=== PATIENT | female | born 1975 | race Caucasian/White ===

== ENCOUNTER 2018-02-13 13:15 | Outpatient (RCR) | payer OTHER, SELFPAY ==
--- NOTE | 2017-12-14 18:52 | MASS.EVAL ---
Massage Therapy Evaluation: Initial Evaluation Date: 12/14/2017 SUBJECTIVE: Marli is a 42 year old female who was referred to the [facility] facility for a massotherapy evaluation by Dr. Dailey with the diagnosis of neck and low back pain. Marli presents today with the symptoms of neck and upper back pain and tension. She also has muscle tension in her low back and complains of a headache. Marli reports having a medical history of having five or more headaches per week and complains of stress. She reports having minimal limitations during her daily activities. OBJECTIVE: Upon observation Marli has poor posture with her head forward and shoulders forward from the neutral position in sitting and standing. After examination and palpation I found Marli to have very high muscle tension with tenderness and myofascial restrictions in her sub occipitals, trapezius, rhomboids, scalenes, thoracic paraspinals. Her hips and lumbar region were also tight. The first treatment consisted of a one hour massage to her full body with myofascial release, muscle stripping, trigger point compression techniques, and cervical manual traction. ASSESSMENT: I feel that Marli is a good candidate for massotherapy at this time. She had a favorable response to the first treatment with reduction in her muscle aches, pain and tension. She also had improvement in her cervical flexibility. PLAN: The plan of care was reviewed with the patient. The patient is to be seen on as needed basis for a total of ten sessions with the recommendation of once every four weeks for a one hour treatment.
--- NOTE | 2018-07-23 15:59 | MASS.DISCH ---
Massage Therapy Discharge Summary: Discharge Date: 07/23/2018 Marli was seen for a massotherapy evaluation on 12/14/2017 with the diagnosis of neck and low back pain. She was treated with two sessions of massage therapy consisting of deep pressure soft tissue techniques, myofascial release and trigger point compression to her cervical, thoracic, lower back, upper extremities and hips. Marli responded well to the therapy by reporting decreased tension and pain throughout her neck, shoulders, lower back and hips. Her goals for therapy were not met due to no follow up treatment sessions performed. At this time this patient is being discharged from our care at [facility] facility.
--- NOTE | 2018-07-23 16:03 | DS.PCM_ITS ---
Massage Therapy Discharge Summary: Discharge Date: 07/23/2018 Marli was seen for a massotherapy evaluation on 12/14/2017 with the diagnosis of neck and low back pain. She was treated with two sessions of massage therapy consisting of deep pressure soft tissue techniques, myofascial release and trigger point compression to her cervical, thoracic, lower back, upper extremities and hips. Marli responded well to the therapy by reporting decreased tension and pain throughout her neck, shoulders, lower back and hips. Her goals for therapy were not met due to no follow up treatment sessions performed. At this time this patient is being discharged from our care at [facility] facility.
== END 2018-02-13 19:00 | disposition home or self-care (01) ==
LOC: MASS 13:15
PROVIDERS: Family Provider Internal Medicine; PCP Internal Medicine; Visit Provider Internal Medicine
DX: M54.2 Cervicalgia (principal); M51.36 Other intervertebral disc degeneration, lumbar region
CPT/HCPCS: 97124

== ENCOUNTER → 2018-04-17 14:05 | Outpatient (CLI) | payer OTHER, SELFPAY ==
--- NOTE | 2018-04-17 14:13 | US_ITS ---
STUDY: ULTRASOUND TRANSVAGINAL CLINICAL: Female, 42 years old. Left pelvic pain. TECHNIQUE: Transvaginal COMPARISON: None. FINDINGS: Normal uterine size measuring 7.9 x 4.0 x 4.0 cm in maximal craniocaudal dimension. There are no myometrial masses. Normal endometrial thickness measuring 4.3 mm. Endometrial echoes are hyperechoic. There are no endometrial masses, and there is no fluid in the endometrial cavity. Nabothian cysts of the uterine cervix. Normal right ovary, measuring 3.7 x 1.7 x 1.9 cm. There is a 1.4 cm cyst. Normal left ovary, measuring 3.0 x 1.6 x 1.9 cm. There are multiple follicles without a dominant cyst. There is no free fluid in the pelvis. Polycystic ovary disease: No. US/Pelvic (Non ) IMPRESSION: No significant finding or abnormality. Electronically Signed: Julio Cesar Rosa MD at 16:12 EDT , Service support ,
--- NOTE | 2018-04-17 14:14 | US_ITS ---
STUDY: ULTRASOUND TRANSVAGINAL CLINICAL: Female, 42 years old. Left pelvic pain. TECHNIQUE: Transvaginal COMPARISON: None. FINDINGS: Normal uterine size measuring 7.9 x 4.0 x 4.0 cm in maximal craniocaudal dimension. There are no myometrial masses. Normal endometrial thickness measuring 4.3 mm. Endometrial echoes are hyperechoic. There are no endometrial masses, and there is no fluid in the endometrial cavity. Nabothian cysts of the uterine cervix. Normal right ovary, measuring 3.7 x 1.7 x 1.9 cm. There is a 1.4 cm cyst. Normal left ovary, measuring 3.0 x 1.6 x 1.9 cm. There are multiple follicles without a dominant cyst. There is no free fluid in the pelvis. Polycystic ovary disease: No. US/Transvaginal Non- IMPRESSION: No significant finding or abnormality. Electronically Signed: Julio Cesar Rosa MD at 16:12 EDT , Service support ,
== END ==
PROVIDERS: Family Provider Internal Medicine; PCP Internal Medicine; Visit Provider Obstetrics & Gynecology
DX: R10.9 Unspecified abdominal pain (principal); R10.2 Pelvic and perineal pain
CPT/HCPCS: 76830; 76856

== ENCOUNTER → 2018-04-26 13:19 | Outpatient (CLI) | payer OTHER, SELFPAY ==
[2018-05-01 11:23] LABS: HPV Reflexed? NOT INDICATED
== END ==
PROVIDERS: Family Provider Internal Medicine; PCP Internal Medicine; Visit Provider Obstetrics & Gynecology
DX: Z12.4 Encounter for screening for malignant neoplasm of cervix (principal)
CPT/HCPCS: 88175; G0145

== ENCOUNTER → 2018-06-13 07:53 | Outpatient (CLI) | payer OTHER, SELFPAY ==
[2018-06-13 09:03] LABS: Color, Urine Yellow (Yellow); Glucose, Dipstick Normal (Normal); Ketone-Dipstick Negative (Negative); Leukocyte Esterase-Dipstick Negative /ul (Negative); Nitrite-Dipstick Negative (Negative); Occult Blood-Urine Negative /ul (Negative); Protein-Dipstick Negative (Negative); Urine Bilirubin Dipstick Negative (Negative); Urine Clarity Sl. Cloudy (Clear); Urine Urobilinogen Normal (Normal); Urine pH 6.5 (5.0 - 8.0)
[2018-06-13 09:25] LABS: Anion Gap 10 (5-15); BUN 14 mg/dL (7-18); BUN/Creat Ratio 14.9 RATIO (10-20); Calcium,Total 8.7 mg/dL (8.5-10.1); Chloride 109 mmol/L (98-107); Creatinine, Serum 0.94 mg/dL (0.55-1.02); EST Glomerular Filtration Rate 69 mL/min (>60); Est Glom Filt Rate - Afr Amer 84 mL/min (>60); Glucose 91 mg/dL (74-106); Potassium 3.8 mmol/L (3.5-5.1); Sodium Level 142 mmol/L (136-145)
== END ==
PROVIDERS: Family Provider Internal Medicine; PCP Internal Medicine; Referring Provider Internal Medicine; Visit Provider Internal Medicine
DX: R31.9 Hematuria, unspecified (principal)
CPT/HCPCS: 36415; 80048; 81002

== ENCOUNTER → 2018-08-16 08:15 | Outpatient (CLI) | payer OTHER, SELFPAY ==
--- NOTE | 2018-08-16 08:15 | BI_ITS ---
MAMMOGRAPHY - BILATERAL SCREENING REASON FOR EXAM: Female, 43 years old. Routine annual screening examination. PERTINENT HISTORY: Aunts with breast cancer. TECHNIQUE: Digital bilateral breast samir (3D mammographic acquisition) in the CC and MLO projections. 2-D mediolateral oblique (MLO) and craniocaudad (CC) views of both breasts were obtained. CAD: Full Field Digital Mammography with Computer Added Detection was performed. COMPARISON: Comparison is made with prior study dated April 07, 2017 and November 30, 2015. FINDINGS: Breast Composition: The breasts are extremely dense, which lowers the sensitivity of mammography. There are no dominant masses or suspicious calcifications. No other significant abnormalities are identified. There has been no significant change since the prior study. BI/SCREENING MAMM (CAD), BILAT IMPRESSION: Stable bilateral screening mammogram. Yearly follow-up mammogram recommended. (A) ASSESSMENT CATEGORY: BIRADS Category 1: Negative. A letter regarding these results will be sent to the patient by the facility within 30 days. Approximately 10% of breast cancers are not detected by mammography. A normal mammogram should not delay biopsy of a clinically suspicious abnormality. [id number] Electronically Signed: Chester Underwood MD at 9:56 EST Tel [phone], Service support ,
== END ==
PROVIDERS: Family Provider Internal Medicine; PCP Internal Medicine; Referring Provider Obstetrics & Gynecology; Visit Provider Obstetrics & Gynecology
DX: Z12.31 Encounter for screening mammogram for malignant neoplasm of breast (principal)
CPT/HCPCS: 77063; 77067

== ENCOUNTER → 2018-09-21 13:32 | Outpatient (CLI) | payer OTHER, SELFPAY ==
[2018-09-21 15:01] LABS: Anion Gap 10 (5-15); BUN 11 mg/dL (7-18); BUN/Creat Ratio 12.3 RATIO (10-20); Chloride 109 mmol/L (98-107); Creatinine, Serum 0.89 mg/dL (0.55-1.02); EST Glomerular Filtration Rate 73 mL/min (>60); Est Glom Filt Rate - Afr Amer 89 mL/min (>60); Glucose 133 mg/dL (74-106); Potassium 3.2 mmol/L (3.5-5.1); Sodium Level 141 mmol/L (136-145)
== END ==
PROVIDERS: Family Provider Internal Medicine; PCP Internal Medicine; Referring Provider Internal Medicine; Visit Provider Internal Medicine
DX: Z51.81 Encounter for therapeutic drug level monitoring (principal); Z79.1 Long term (current) use of non-steroidal anti-inflammatories (NSAID); G43.709 Chronic migraine without aura, not intractable, without status migrainosus; I10 Essential (primary) hypertension
CPT/HCPCS: 36415; 80048

== ENCOUNTER → 2018-10-03 14:31 | Outpatient (CLI) | payer OTHER, SELFPAY ==
[2018-10-03 15:09] LABS: Potassium 3.6 mmol/L (3.5-5.1)
== END ==
PROVIDERS: Family Provider Internal Medicine; PCP Internal Medicine; Referring Provider Nurse Practitioner Primary Care; Visit Provider Nurse Practitioner Primary Care
DX: E87.6 Hypokalemia (principal)
CPT/HCPCS: 36415; 84132

== ENCOUNTER → 2019-04-17 07:33 | Outpatient (CLI) | payer OTHER, SELFPAY ==
[2018-10-11 16:06] VITALS: BMI 29.9
--- NOTE | 2019-04-17 07:34 | CT_ITS ---
STUDY: CT ABDOMEN AND PELVIS WITHOUT CONTRAST REASON FOR EXAM: Female, 43 years old. One-year history of left lower quadrant pain and hematuria. RADIATION DOSAGE (If Supplied By Facility): CTDIvol = ( 12.06 ) mGy, DLP = ( 644.84 ) mGycm TECHNIQUE: Transaxial images were obtained from the dome of the diaphragm to the symphysis pubis without oral contrast, and without intravenous contrast. Sagittal and coronal images were reconstructed. Individualized dose optimization techniques were used for this CT. COMPARISON: None. FINDINGS: Minimal increased markings in the medial aspect of the right middle lobe suggestive of scarring. The visualized portions of the heart are within normal limits. Normal liver. Normal gallbladder and extrahepatic biliary system. There are multiple benign calcified granulomata of the spleen. Normal pancreas. Normal bilateral adrenal glands. Normal right kidney. Normal left kidney. Normal visualized stomach. Normal small intestine. Normal colon. The appendix is visualized and appears normal. Normal abdominal aorta. Normal inferior vena cava. Normal retroperitoneum. Normal urinary bladder. Phleboliths are seen in the pelvis. Normal abdominal wall. Disc space narrowing at the L4-L5 level. CT/Abdomen/Pelvis without Cont IMPRESSION: Normal unenhanced CT of the abdomen and pelvis. Electronically Signed: Chester Underwood, at 15:00 EDT , Service support ,
== END ==
PROVIDERS: Family Provider Internal Medicine; PCP Internal Medicine; Referring Provider Nurse Practitioner Primary Care; Visit Provider Nurse Practitioner Primary Care
DX: R31.29 Other microscopic hematuria (principal)
CPT/HCPCS: 74176

== ENCOUNTER → 2019-05-24 16:55 | Outpatient (CLI) | payer OTHER, SELFPAY ==
[2018-10-11 16:06] VITALS: BMI 29.9
== END ==
PROVIDERS: Visit Provider Obstetrics & Gynecology
DX: Z12.4 Encounter for screening for malignant neoplasm of cervix (principal)

== ENCOUNTER 2019-06-27 14:30 | Outpatient (RCR) | payer OTHER, SELFPAY ==
[2018-10-11 16:06] VITALS: BMI 29.9
--- NOTE | 2018-11-06 20:09 | MASS.EVAL_ITS ---
Massage Therapy Evaluation: Initial Evaluation Date: 11/06/2018 SUBJECTIVE: Marli is a 43 year old female who was referred to the [facility] facility for a massotherapy evaluation by Dr. Mckeon with the diagnosis of cervicalgia and lumbar disc dysfunction. Marli presents today with the symptoms of tension and pain in her neck, mid back and low back. Marli reports having a past medical history migraines, neck and back pain. She reports having minimal improvement with exercise and stretching. OBJECTIVE: Upon observation Marli has some posture issues with her head and shoulders forward from the neutral position in sitting and standing. After examination and palpation I found Marli to have high muscle tension with tenderness and myofascial restrictions in her sub occipitals, levator scapulae, trapezius, rhomboids, scalenes, and thoracic paraspinals. Her QL?s, lumbar paraspinals, piriformis, glute medius and minimus all were very tight with fascial restrictions, tender points and trigger points. The first treatment consisted of a one hour massage to her upper body with myofascial release, muscle stripping, trigger point compression techniques, and cervical manual traction. ASSESSMENT: I feel that Marli is a good candidate for massotherapy at this time. She had a favorable response to the first treatment with reduction in her muscle aches, pain and tension. She also had improvement in her cervical flexibility and low back flexibility. PLAN: The plan of care was reviewed with the patient. The patient is to be seen on an as needed basis for a total of ten sessions with the recommendation of once every month for a one hour treatment.
--- NOTE | 2019-07-25 13:16 | MASS.DISCH ---
Massage Therapy Discharge Summary: Discharge Date: 07/25/2019 Marli was seen for a massotherapy evaluation on 11/06/2018 with the diagnosis of cervicalgia. She was treated with seven sessions of massage therapy consisting of moderate to deep pressure soft tissue techniques, myofascial release and trigger point compression to her cervical, thoracic, lower back and upper extremities. Marli responded well to the therapy by reporting decreased tension and pain throughout her head, neck, shoulders, lower back and hips. Her goals for therapy were met throughout the treatment sessions. At this time this patient is being discharged from our care at [facility] facility.
== END 2019-06-27 19:00 | disposition home or self-care (01) ==
LOC: MASS 14:30
PROVIDERS: Family Provider Internal Medicine; PCP Internal Medicine
DX: M54.2 Cervicalgia (principal); M51.36 Other intervertebral disc degeneration, lumbar region
CPT/HCPCS: 97124

== ENCOUNTER → 2020-04-06 14:17 | Outpatient (CLI) | payer OTHER, SELFPAY ==
[2019-07-18 16:00] VITALS: BMI 29.8
--- NOTE | 2020-04-06 14:21 | BI_ITS ---
MAMMOGRAPHY - BILATERAL SCREENING REASON FOR EXAM: Female, 44 years old. Routine annual screening examination. PERTINENT HISTORY: Aunt with breast cancer. TECHNIQUE: Digital bilateral breast syeda (3D mammographic acquisition) in the CC and MLO projections. 2-D mediolateral oblique (MLO) and craniocaudad (CC) views of both breasts were obtained. CAD: Full Field Digital Mammography with Computer Added Detection was performed. COMPARISON: Comparison is made with prior study dated 08/16/2018 and 04/07/2017. FINDINGS: Breast Composition: The breasts are extremely dense, which lowers the sensitivity of mammography. There are no dominant masses or suspicious calcifications. No other significant abnormalities are identified. There has been no significant change since the prior study. BI/SCREEN MAMM (CAD) W/SYEDA BILAT IMPRESSION: Stable bilateral screening mammogram. Yearly follow-up mammogram recommended. (A) ASSESSMENT CATEGORY: BIRADS Category 1: Negative. A letter regarding these results will be sent to the patient by the facility within 30 days. Approximately 10% of breast cancers are not detected by mammography. A normal mammogram should not delay biopsy of a clinically suspicious abnormality. [id number] Electronically Signed: Chester Underwood, at 15:06 EDT , Service support ,
== END ==
PROVIDERS: Referring Provider Student in an Organized Health Care Education/Training Program; Visit Provider Student in an Organized Health Care Education/Training Program
DX: Z12.31 Encounter for screening mammogram for malignant neoplasm of breast (principal); Z80.3 Family history of malignant neoplasm of breast
CPT/HCPCS: 77063; 77067

== ENCOUNTER → 2020-05-21 11:42 | Outpatient (CLI) | payer OTHER, SELFPAY ==
[2019-07-18 16:00] VITALS: BMI 29.8
--- NOTE | 2020-05-21 11:47 | RAD_ITS ---
STUDY: X-RAY - LEFT SHOULDER REASON FOR EXAM: Female, 44 years old. Left shoulder pain x 1 month +, NKI -- pain in scapula TECHNIQUE: C5 view(s) of the shoulder. COMPARISON: None. FINDINGS: Normal glenohumeral articulation. Normal acromioclavicular joint. Normal acromion. Normal humeral head and visualized proximal humerus. The soft tissue structures are unremarkable. Normal visualized pulmonary apex. RAD/Shoulder min 2 Views IMPRESSION: Within normal limits x-ray examination of the shoulder. Electronically Signed: Rhonda Rose MD at 15:49 EDT Tel , Service support ,
== END ==
PROVIDERS: PCP Internal Medicine; Visit Provider Nurse Practitioner Primary Care
DX: M25.512 Pain in left shoulder (principal)
CPT/HCPCS: 73030

== ENCOUNTER → 2020-05-28 11:05 | Outpatient (CLI) | payer OTHER, SELFPAY ==
--- NOTE | 2020-05-28 11:08 | RAD_ITS ---
STUDY: X-RAY - LEFT SHOULDER REASON FOR EXAM: Left shoulder pain. TECHNIQUE: A single axillary view of the shoulder. COMPARISON: Radiographs 05/21/2020. FINDINGS: Normal glenohumeral articulation. Normal acromion. Normal humeral head and visualized proximal humerus. The soft tissue structures are unremarkable. RAD/Shoulder One View IMPRESSION: Unremarkable axillary view of the left shoulder. Electronically Signed: Pool Keyes MD at 15:32 EDT Tel , Service support ,
== END ==
PROVIDERS: PCP Internal Medicine; Referring Provider Orthopaedic Surgery; Visit Provider Orthopaedic Surgery
DX: M25.512 Pain in left shoulder (principal)
CPT/HCPCS: 73020

== ENCOUNTER 2020-05-28 14:30 | Outpatient (RCR) | payer OTHER, SELFPAY ==
[2019-07-18 16:00] VITALS: BMI 29.8
== END 2020-05-28 19:00 | disposition home or self-care (01) ==
LOC: MASS 14:30
PROVIDERS: PCP Internal Medicine
DX: M51.36 Other intervertebral disc degeneration, lumbar region (principal); M54.2 Cervicalgia
CPT/HCPCS: 97124

== ENCOUNTER → 2020-06-09 11:49 | Outpatient (CLI) | payer OTHER, SELFPAY ==
--- NOTE | 2020-06-09 11:50 | RAD_ITS ---
STUDY: X-RAY - THORACIC SPINE REASON FOR EXAM: Female, 45 years old. PAIN IN CERVICAL SPINE DOWN INTO HER THORACIC SPINE FOR ABOUT 1 MONTH NOW. NO KNOWN INJURY. TECHNIQUE: 3 view(s) of the thoracic spine were obtained. COMPARISON: None. FINDINGS: Normal kyphosis of the thoracic spine. There is mild dextro scoliosis. No evidence for acute fracture or subluxation. The disc space heights are well-maintained although there is mild multilevel endplate spurring The soft tissue structures are unremarkable. RAD/Thoracic Spine 3 Views IMPRESSION: Mild scoliosis and degenerative change. No acute fracture. Electronically Signed: Poncho Garibay MD at 18:33 EST , Service support ,
--- NOTE | 2020-06-09 11:55 | RAD_ITS ---
STUDY: X-RAY - CERVICAL SPINE REASON FOR EXAM: Female, 45 years old. PAIN IN CERVICAL SPINE DOWN INTO HER THORACIC SPINE FOR ABOUT 1 MONTH NOW. NO KNOWN INJURY. TECHNIQUE: 5 view(s) of the cervical spine were obtained. COMPARISON: None FINDINGS: Normal anterior atlantoaxial articulation. Normal odontoid process. Decreased cervical lordosis. Normal vertebral bodies and endplates. Normal disc space heights. Normal visualized intervertebral neuroforamina. The soft tissue structures are unremarkable. RAD/Cerv Spine 4 or 5 Views IMPRESSION: Decreased cervical lordosis possibly due to muscle spasm or positioning artifact. No acute fracture or other significant bony pathology. Electronically Signed: Poncho Garibay MD at 17:58 EST , Service support ,
== END ==
PROVIDERS: PCP Internal Medicine; Referring Provider Orthopaedic Surgery; Visit Provider Orthopaedic Surgery
DX: M54.9 Dorsalgia, unspecified (principal)
CPT/HCPCS: 72050; 72072

== ENCOUNTER 2020-06-11 10:03 | Outpatient (RCR) | payer OTHER, SELFPAY ==
[2020-06-02 12:09] VITALS: BMI 29.8
== END 2020-06-11 19:00 | disposition home or self-care (01) ==
LOC: PT 10:03
PROVIDERS: PCP Internal Medicine; Referring Provider Orthopaedic Surgery; Visit Provider Orthopaedic Surgery
DX: M54.12 Radiculopathy, cervical region (principal); M54.6 Pain in thoracic spine
CPT/HCPCS: 97140; 97162

== ENCOUNTER → 2020-06-19 06:35 | Outpatient (CLI) | payer OTHER, SELFPAY ==
[2020-06-02 12:09] VITALS: BMI 29.8
--- NOTE | 2020-06-19 06:36 | MRI_ITS ---
STUDY: MRI THORACIC SPINE WITHOUT CONTRAST REASON FOR EXAM: Female, 45 years old. L shoulder pain, no trauma x 5weeks TECHNIQUE: Standardized fat and water weighted pulse sequences were obtained in the sagittal and axial planes. COMPARISON: X-ray dated 06/09/2020 FINDINGS: Normal kyphosis of the thoracic spine. There is no substantial scoliosis. T1-2, T2-3, T3-4, T4-5, T5-6, T6-7, T7-8, T8-9, T9-10, T10-11, T11-12: There is mild diffuse disc space narrowing is diverticulosis without demonstrated central canal or foraminal stenosis. There is a 2 cm hemangioma at T9 Normal visualized thoracic cord. MRI/Spine Thoracic (Routine) IMPRESSION: Mild multilevel degenerative changes. Electronically Signed: Jimy Buenrostro MD at 8:28 EST Tel , Service support ,
--- NOTE | 2020-06-19 06:36 | MRI_ITS ---
STUDY: MRI CERVICAL SPINE WITHOUT CONTRAST REASON FOR EXAM: Female, 45 years old. L shoulder pain, no trauma x 5weeks TECHNIQUE: Standardized fat and water weighted pulse sequences were obtained in the sagittal and axial planes. COMPARISON: X-ray dated 06/09/2020 FINDINGS: Normal foramen magnum and brainstem-cervical cord junction. There is straightening of the normal cervical lordosis. C2-3: Normal endplates. Normal disc height, signal and morphology. Normal central canal and intervertebral neural foramina. C3-4: Normal endplates. Normal disc height, signal and morphology. Normal central canal and intervertebral neural foramina. C4-5: There is minimal disc space narrowing and endplate spondylosis. There is no significant disc herniation, central canal or foraminal stenosis. C5-6: There is mild disc space narrowing and endplates spondylosis. There is mild disc osteophyte complex with moderate central canal stenosis and flattening of the ventral spinal cord without increased cord signal. There is no foraminal stenosis. C6-7: There is mild disc space narrowing and endplates spondylosis. There is mild disc osteophyte complex asymmetric to the left with mild left subarticular narrowing and mild central canal stenosis. There is uncovertebral arthropathy with moderate left foraminal stenosis. There is no right foraminal stenosis. C7-T1: Normal endplates. Normal disc height, signal and morphology. Normal central canal and intervertebral neural foramina. Normal cervical cord. MRI/Spine Cervical (Routine) IMPRESSION: C5/C6: Moderate central canal stenosis. C6/C7: Moderate left foraminal stenosis. Electronically Signed: Jimy Buenrostro MD at 8:28 EST Tel , Service support ,
== END ==
PROVIDERS: PCP Internal Medicine; Referring Provider Orthopaedic Surgery; Visit Provider Orthopaedic Surgery
DX: M54.9 Dorsalgia, unspecified (principal); M54.12 Radiculopathy, cervical region
CPT/HCPCS: 72141; 72146

== ENCOUNTER → 2020-09-17 16:57 | Outpatient (CLI) | payer OTHER, SELFPAY | PROVIDERS: PCP Internal Medicine; Referring Provider Internal Medicine; Visit Provider Internal Medicine | DX: Z20.828 Contact with and (suspected) exposure to other viral communicable diseases (principal) | CPT/HCPCS: 87635; C9803; U0005; U0003 ==

== ENCOUNTER 2020-12-03 13:07 | Outpatient (RCR) | payer OTHER, SELFPAY ==
[2020-06-02 12:09] VITALS: BMI 29.8
--- NOTE | 2021-07-19 17:17 | MASS.DISCH ---
Massage Therapy Discharge Summary: Initial Evaluation Date: 12/03/20 Diagnosis: Headaches No. of Visits: 1 Date of last visit: 12/03/20 This patient is being discharged from our care at the [facility]. Thank you, Merlyn Durant LMT
== END 2020-12-03 19:00 | disposition home or self-care (01) ==
LOC: MASS 13:07
PROVIDERS: PCP Internal Medicine
DX: G43.119 Migraine with aura, intractable, without status migrainosus (principal)
CPT/HCPCS: 97124

== ENCOUNTER → 2021-04-07 12:20 | Outpatient (CLI) | payer OTHER, SELFPAY | PROVIDERS: PCP Internal Medicine; Referring Provider Nurse Practitioner Primary Care; Visit Provider Nurse Practitioner Primary Care | DX: Z20.822 Contact with and (suspected) exposure to COVID-19 (principal) | CPT/HCPCS: 87635; C9803; U0005; U0003 ==

== ENCOUNTER → 2021-05-18 07:35 | Outpatient (CLI) | payer OTHER, SELFPAY ==
[2021-05-18 08:30] LABS: Hemoglobin A1c 5.5 % (3.8-5.6)
[2021-05-18 08:36] LABS: Ferritin 59 ng/mL (8-252); Iron Binding Capacity,Total 417 ug/dL (250-450)
== END ==
PROVIDERS: PCP Internal Medicine; Referring Provider Nurse Practitioner Primary Care; Visit Provider Nurse Practitioner Primary Care
DX: U07.1 COVID-19 (principal); E61.1 Iron deficiency; R53.83 Other fatigue; R73.01 Impaired fasting glucose
CPT/HCPCS: 36415; 82728; 83036; 83550; 86769

== ENCOUNTER → 2021-05-19 09:11 | Outpatient (CLI) | payer OTHER, SELFPAY | PROVIDERS: PCP Internal Medicine; Referring Provider Physician Assistant; Visit Provider Physician Assistant | DX: Z11.52 Encounter for screening for COVID-19 (principal) | CPT/HCPCS: 87635; U0005; U0003 ==

== ENCOUNTER → 2021-05-31 06:59 | Outpatient (CLI) | payer OTHER, SELFPAY ==
--- NOTE | 2021-05-31 07:09 | BI_ITS ---
MAMMOGRAPHY - BILATERAL SCREENING REASON FOR EXAM: Female, 45 years old. Routine annual screening examination. PERTINENT HISTORY: Aunts with breast cancer. TECHNIQUE: Digital bilateral breast syeda (3D mammographic acquisition) in the CC and MLO projections. 2-D mediolateral oblique (MLO) and craniocaudad (CC) views of both breasts were obtained. CAD: Full Field Digital Mammography with Computer Added Detection was performed. COMPARISON: Comparison is made with prior study 04/06/2020 and 08/16/2018. FINDINGS: Breast Composition: The breasts are extremely dense, which lowers the sensitivity of mammography. There are no dominant masses or suspicious calcifications. Stable small benign-appearing bilateral axillary lymph nodes. No other significant abnormalities are identified. There has been no significant change since the prior study. BI/SCRN MAMM (CAD)W/SYEDA BILAT IMPRESSION: Stable bilateral screening mammogram. Yearly follow-up mammogram recommended. (A) ASSESSMENT CATEGORY: BIRADS Category 2: Benign. A letter regarding these results will be sent to the patient by the facility within 30 days. Approximately 10% of breast cancers are not detected by mammography. A normal mammogram should not delay biopsy of a clinically suspicious abnormality. [id number] Electronically Signed: Chester Underwood MD at 8:52 EDT , Service support ,
== END ==
PROVIDERS: PCP Internal Medicine; Referring Provider Internal Medicine; Visit Provider Internal Medicine
DX: Z12.31 Encounter for screening mammogram for malignant neoplasm of breast (principal); Z80.3 Family history of malignant neoplasm of breast
CPT/HCPCS: 77063; 77067

== ENCOUNTER → 2021-07-02 07:15 | Outpatient (CLI) | payer OTHER, SELFPAY | PROVIDERS: Visit Provider Pediatrics | DX: Z03.818 Encounter for observation for suspected exposure to other biological agents ruled out (principal) | CPT/HCPCS: 87635; U0005; U0003 ==

== ENCOUNTER 2021-08-11 07:42 | Outpatient (CLI) | payer OTHER, SELFPAY | END 2021-08-11 23:59 | disposition short-term general hospital (02) | PROVIDERS: PCP Internal Medicine; Referring Provider Pediatrics; Visit Provider Pediatrics | DX: Z03.818 Encounter for observation for suspected exposure to other biological agents ruled out (principal) | CPT/HCPCS: 87635; U0003; U0005 ==

== ENCOUNTER 2021-08-26 08:32 | Outpatient (CLI) | payer OTHER, SELFPAY | END 2021-08-26 23:59 | disposition short-term general hospital (02) | LOC: LABSPEC 09-01 08:32 | PROVIDERS: PCP Internal Medicine; Referring Provider Pediatrics; Visit Provider Pediatrics | DX: Z20.822 Contact with and (suspected) exposure to COVID-19 (principal) | CPT/HCPCS: 87635; U0003; U0005 ==

== ENCOUNTER 2021-09-03 07:42 | Outpatient (CLI) | payer OTHER, SELFPAY | END 2021-09-03 23:59 | disposition short-term general hospital (02) | LOC: LABSPEC 07:42 | PROVIDERS: PCP Internal Medicine; Referring Provider Pediatrics; Visit Provider Pediatrics | DX: Z03.818 Encounter for observation for suspected exposure to other biological agents ruled out (principal) | CPT/HCPCS: 87635; U0003; U0005 ==

== ENCOUNTER 2021-10-21 07:32 | Outpatient (CLI) | payer OTHER, SELFPAY | END 2021-10-21 23:59 | disposition home or self-care (01) | PROVIDERS: PCP Internal Medicine; Referring Provider Pediatrics; Visit Provider Pediatrics | DX: Z20.822 Contact with and (suspected) exposure to COVID-19 (principal) | CPT/HCPCS: 87635; U0003; U0005 ==

== ENCOUNTER → 2021-12-17 | Outpatient (CLI) | payer OTHER, SELFPAY | END | disposition home or self-care (01) | PROVIDERS: PCP Internal Medicine; Referring Provider Pediatrics; Visit Provider Pediatrics | DX: Z03.818 Encounter for observation for suspected exposure to other biological agents ruled out (principal) | CPT/HCPCS: 87635; U0003; U0005 ==

== ENCOUNTER → 2022-01-17 | Outpatient (CLI) | payer OTHER, SELFPAY ==
[2022-01-20 12:21] LABS: HPV APTIMA, High Risk Negative (Negative)
== END | disposition home or self-care (01) ==
LOC: LABSPEC 14:38
PROVIDERS: PCP Internal Medicine; Visit Provider Student in an Organized Health Care Education/Training Program
DX: Z12.4 Encounter for screening for malignant neoplasm of cervix (principal)
CPT/HCPCS: 87624; 88175; G0145

== ENCOUNTER → 2022-04-07 | Outpatient (CLI) | payer OTHER, SELFPAY | END | disposition home or self-care (01) | LOC: LABSPEC 08:27 | PROVIDERS: PCP Internal Medicine; Referring Provider Pediatrics; Visit Provider Pediatrics | DX: Z03.818 Encounter for observation for suspected exposure to other biological agents ruled out (principal) | CPT/HCPCS: 87426 ==

== ENCOUNTER → 2022-06-06 | Outpatient (CLI) | payer OTHER, SELFPAY ==
--- NOTE | 2022-06-06 08:01 | BI_ITS ---
MAMMOGRAPHY - BILATERAL SCREENING REASON FOR EXAM: Female, 46 years old. Routine annual screening examination. PERTINENT HISTORY: Aunts with breast cancer. TECHNIQUE: Digital bilateral breast syeda (3D mammographic acquisition) in the CC and MLO projections. 2-D mediolateral oblique (MLO) and craniocaudad (CC) views of both breasts were obtained. CAD: Full Field Digital Mammography with Computer Added Detection was performed. COMPARISON: Comparison is made with prior study dated 05/31/2021 and 04/06/2020. FINDINGS: Breast Composition: The breasts are extremely dense, which lowers the sensitivity of mammography. There are no dominant masses or suspicious calcifications. Stable small benign appearing bilateral axillary lymph nodes. No other significant abnormalities are identified. There has been no significant change since the prior study. BI/SCRN MAMM (CAD)W/SYEDA BILAT IMPRESSION: Stable bilateral screening mammogram. Yearly follow-up mammogram recommended. (A) ASSESSMENT CATEGORY: BIRADS Category 2: Benign. A letter regarding these results will be sent to the patient by the facility within 30 days. Approximately 10% of breast cancers are not detected by mammography. A normal mammogram should not delay biopsy of a clinically suspicious abnormality. [id number] Electronically Signed: Chester Underwood MD at 9:36 EDT ,
== END | disposition home or self-care (01) ==
LOC: OPBI 07:58
PROVIDERS: PCP Internal Medicine; Visit Provider Internal Medicine
DX: Z12.31 Encounter for screening mammogram for malignant neoplasm of breast (principal); Z80.3 Family history of malignant neoplasm of breast
CPT/HCPCS: 77063; 77067

== ENCOUNTER → 2023-06-07 | Outpatient (CLI) | payer BC, SELFPAY ==
--- NOTE | 2023-06-07 07:02 | BI_ITS ---
MAMMOGRAPHY - BILATERAL SCREENING REASON FOR EXAM: Female, 47 years old. Routine annual screening examination. PERTINENT HISTORY: Aunts with breast cancer. TECHNIQUE: Digital bilateral breast syeda (3D mammographic acquisition) in the CC and MLO projections. 2-D mediolateral oblique (MLO) and craniocaudad (CC) views of both breasts were obtained. CAD: Full Field Digital Mammography with Computer Added Detection was performed. COMPARISON: Comparison is made with prior study dated June 06, 2022 and May 31, 2021. FINDINGS: Breast Composition: The breasts are extremely dense, which lowers the sensitivity of mammography. There are no dominant masses or suspicious calcifications. Stable small benign-appearing bilateral axillary lymph nodes. No other significant abnormalities are identified. There has been no significant change since the prior study. BI/SCRN MAMM (CAD)W/SYEDA BILAT IMPRESSION: Stable bilateral screening mammogram. Yearly follow-up mammogram recommended. (A) ASSESSMENT CATEGORY: BIRADS Category 2: Benign. A letter regarding these results will be sent to the patient by the facility within 30 days. Approximately 10% of breast cancers are not detected by mammography. A normal mammogram should not delay biopsy of a clinically suspicious abnormality. [id number] Electronically Signed: Chester Underwood MD at 8:50 EDT ,
== END | disposition home or self-care (01) ==
PROVIDERS: PCP Nurse Practitioner; Referring Provider Nurse Practitioner Women's Health; Visit Provider Nurse Practitioner Women's Health
DX: Z12.31 Encounter for screening mammogram for malignant neoplasm of breast (principal); Z80.3 Family history of malignant neoplasm of breast
CPT/HCPCS: 77063; 77067

== ENCOUNTER → 2023-06-23 | Outpatient (CLI) | payer BC, SELFPAY ==
[2023-06-23 14:12] LABS: Ferritin 37 ng/mL (8-252); Iron 77 ug/dL (50-170); Iron Binding Capacity,Total 428 ug/dL (250-450)
== END | disposition home or self-care (01) ==
LOC: LAB 13:22
PROVIDERS: PCP Nurse Practitioner; Referring Provider Nurse Practitioner; Visit Provider Nurse Practitioner
DX: Z86.39 Personal history of other endocrine, nutritional and metabolic disease (principal)
CPT/HCPCS: 36415; 82728; 83540; 83550

== ENCOUNTER 2023-07-20 14:11 | Emergency (ER) | payer BC, SELFPAY ==
[2023-07-20 14:14] VITALS: BP 138/81; PULSE 77; RESP 14; TEMP 36.3; O2SAT 99; BMI 29.9
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
== END 2023-07-20 14:51 | disposition home or self-care (01) ==
PROVIDERS: Emergency Provider Emergency Medicine; PCP Nurse Practitioner; Visit Provider Emergency Medicine
DX: S09.90XA Unspecified injury of head, initial encounter (principal); S10.93XA Contusion of unspecified part of neck, initial encounter; V49.40XA Driver injured in collision with unspecified motor vehicles in traffic accident, initial encounter; E78.5 Hyperlipidemia, unspecified; Z87.891 Personal history of nicotine dependence; G43.909 Migraine, unspecified, not intractable, without status migrainosus; Z79.899 Other long term (current) drug therapy; Z90.49 Acquired absence of other specified parts of digestive tract; Y92.410 Unspecified street and highway as the place of occurrence of the external cause
CPT/HCPCS: 99282

== ENCOUNTER 2023-11-07 07:06 | Day surgery (SDC) | payer BC, SELFPAY ==
[2023-11-07] MEDS: Lactated Ringers 1,000 ML 15 ML IV (07:30)
--- NOTE | 2023-11-07 07:36 | PCM.HP.STD ---
HPI - General General Date of Admission: 04/21/20 Date of Service: 11/07/23 Chief Complaint: Screening for intestinal cancer [facility] Narrative MINDI DURAN, is a 48 F who presents for screening colonoscopy today. She has not had a previous one. She has some intermittent left lower quadrant pain. Family history is notable for a paternal grandmother with colon cancer. Patient does have an intermittent dull ache on the left lower side. 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 No bright red blood per rectum. No melena. No unexpected weight loss. She otherwise enjoys good health [facility] Medical History (Updated 11/01/23 @ 09:35 by Lelo Aguilar) Abdominal pain Acute electrocardiogram changes Bilateral headaches Bulging lumbar disc Coronary vasospasm History of echocardiogram Hyperlipidemia Migraine Wears glasses Home Medications topiramate 100 mg tablet 100 mg PO DAILY 10/17/16 [History Last Taken Unknown] acetaminophen 325 mg tablet 325 - 650 mg (1 - 2 x 325 mg) PO Q6H PRN PRN Pain #0 tabs 10/18/16 [Rx Last Taken Unknown] zinc acetate 50 mg (zinc) capsule (Galzin) 50 mg PO DAILY 05/28/20 [History Last Taken Unknown] etonogestrel 0.12 mg-ethinyl estradiol 0.015 mg/24 hr vaginal ring (NuvaRing) 1 vag ring vaginal Q4W #3 ea 05/23/23 [Rx Last Taken Unknown] galcanezumab-gnlm 120 mg/mL subcutaneous pen injector (Emgality Pen) 120 mg subcut QMONTH 05/23/23 [History Last Taken Unknown] magnesium oxide 400 mg PO DAILY 05/24/23 [History Last Taken Unknown] rimegepant 75 mg disintegrating tablet (Nurtec ODT) 75 mg PO ONCE PRN migraine headache 05/24/23 [History Last Taken Unknown] Allergy/AdvReac Type Severity Reaction Status Date / Time metoprolol AdvReac Severe Severe Verified 11/07/23 07:34 chest pain NSAIDS (Non-Steroidal AdvReac Severe Marked Verified 11/07/23 07:34 Anti-Inflamma depressed renal function Family History (Updated 05/24/23 @ 08:51 by Ella Gil) Grandfather Colon cancer Other Cancer Heart disease Surgical History History of laparoscopic cholecystectomy History of left heart catheterization (10/18/16) Social History household members: spouse current occupational status: employed 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 quit date: 08/07/06 pack-years: 15 alcohol intake: never substance use type: does not use what type of physical activity do you participate in: none seatbelt use: always do you feel safe at home: Yes additional social history: -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- golf sales manager ROS Constitutional Constitutional: Reports systems reviewed and no addt'l complaints, except as documented Cardiovascular Cardiovascular: Denies chest pain Respiratory/Chest Respiratory/Chest: Denies shortness of breath at rest Gastrointestinal Gastrointestinal: Denies abdominal pain, change in bowel habits, hematochezia or melena Physical Exam Const alert, oriented x3 and no apparent distress General Appearance: cooperative and comfortable Eyes General Eye: normal appearance of both eyes Neck General: normal visual inspection Chest inspection of chest normal Resp Effort and Inspection: able to speak in complete sentences and symmetric chest movement Auscultation: clear to auscultation bilaterally Cardio regular rate and regular rhythm GI soft to palpation, non-tender and non-distended Extremity no calf tenderness Neuro oriented x3 Psych thought process normal Assessment & Plan Assessment/Plan (1) Encounter for screening for malignant neoplasm of colon: PLAN: The patient presents for screening colonoscopy today via open access. She is aware of the technique, benefit, risk, alternatives. She has had an opportunity to ask and have questions answered. We will proceed as noted. Junior Worthington M.D., F.A.C.S.
[2023-11-07 07:38] VITALS: BP 135/81; PULSE 70; RESP 18; TEMP 37; O2SAT 100; BMI 29.7
--- NOTE | 2023-11-07 08:34 | OP.COLON_ITS ---
Patient Name: Marli Fontanez Procedure Date: 11/07/2023 8:04 AM Date of : 1975 Age: 48 Procedure: Colonoscopy Indications: Screening for colorectal malignant neoplasm Providers: Junior Worthington MD Referring MD: Keith Johnston Medicines: See the Anesthesia note for documentation of the administered medications Patient Profile: Last Colonoscopy: none. The patient's first colonoscopy is today. Complications: No immediate complications. Procedure: Pre-Anesthesia Assessment: - Prior to the procedure, a History and Physical was performed, and patient medications and allergies were reviewed. The patient's tolerance of previous anesthesia was also reviewed. The risks and benefits of the procedure and the sedation options and risks were discussed with the patient. All questions were answered, and informed consent was obtained. Prior Anticoagulants: The patient has taken no anticoagulant or antiplatelet agents. ASA Grade Assessment: I - A normal, healthy patient. After reviewing the risks and benefits, the patient was deemed in satisfactory condition to undergo the procedure. After I obtained informed consent, the scope was passed under direct vision. Throughout the procedure, the patient's blood pressure, pulse, and oxygen saturations were monitored continuously. The colonoscope was introduced through the anus and advanced to the cecum, identified by appendiceal orifice and ileocecal valve. The colonoscopy was performed without difficulty. The patient tolerated the procedure well. The quality of the bowel preparation was good. The ileocecal valve and the appendiceal orifice were photographed. Scope In: 8:13:41 AM Scope Withdrawal Time 0 hours 9 minutes 43 seconds Scope Out: 8:30:29 AM Total Procedure Duration Time 0 hours 16 minutes 48 seconds Findings: Hemorrhoids were found on perianal exam. The colon (entire examined portion) appeared normal. Impression: - Hemorrhoids found on perianal exam. - The entire examined colon is normal. - No specimens collected. Recommendation: - Discharge patient to home. - Resume previous diet. - Continue present medications. - Repeat colonoscopy in 10 years for screening purposes. Procedure Code(s): --- Professional --- 14550, Colonoscopy, flexible; diagnostic, including collection of specimen(s) by brushing or washing, when performed (separate procedure) Diagnosis Code(s): --- Professional --- Z12.11, Encounter for screening for malignant neoplasm of colon K64.9, Unspecified hemorrhoids CPT copyright 2021 [employer]. All rights reserved. The codes documented in this report are preliminary and upon intermediate manager review may be revised to meet current compliance requirements. Junior Worthington MD 11/07/2023 8:34:31 AM This report has been signed electronically. Number of Addenda: 0 Note Initiated On: 11/07/2023 8:04 AM
[2023-11-07 08:35] VITALS: BP 102/57; BP 135/81; PULSE 67; RESP 16; TEMP 36.6; O2SAT 99
--- NOTE | 2023-11-07 08:35 | OP.CCLET_ITS ---
11/07/2023 Keith Johnston Re : Colonoscopy procedure for Marli Paiger Jody This procedure was performed on Tuesday, November 07, 2023. My impressions and recommendations are as follows: Impressions : - Hemorrhoids found on perianal exam. - The entire examined colon is normal. - No specimens collected. Recommendations : - Discharge patient to home. - Resume previous diet. - Continue present medications. - Repeat colonoscopy in 10 years for screening purposes. My findings are described in the full procedure note, which is enclosed. If I can be of further assistance, please feel free to contact me at Doctor phone number(s): Work: . Sincerely, Junior Worthington MD 11/07/2023 8:34:31 AM This report has been signed electronically.
[2023-11-07 08:40] VITALS: BP 103/58; BP 135/81; PULSE 64; RESP 18; O2SAT 99
[2023-11-07 08:45] VITALS: BP 104/64; BP 135/81; PULSE 54; RESP 18; O2SAT 100
[2023-11-07 08:47] VITALS: BP 112/69; BP 135/81; PULSE 51; RESP 18; TEMP 36.5; O2SAT 100
[2023-11-07 09:02] VITALS: BP 135/81
== END 2023-11-07 09:11 | disposition home or self-care (01) ==
LOC: EN 07:06 → AC 07:07
PROVIDERS: PCP Nurse Practitioner; Referring Provider Nurse Practitioner; Visit Provider Surgery
PROC: 0DJD8ZZ Inspection of Lower Intestinal Tract, Via Natural or Artificial Opening Endoscopic (ICD-10-PCS; CPT 45378; principal; 2023-11-07 07:55)
DX: Z12.11 Encounter for screening for malignant neoplasm of colon (principal); Z87.891 Personal history of nicotine dependence; E78.5 Hyperlipidemia, unspecified; Z80.0 Family history of malignant neoplasm of digestive organs; K64.9 Unspecified hemorrhoids; Z90.49 Acquired absence of other specified parts of digestive tract
CPT/HCPCS: 45378; J7120; J2405

== ENCOUNTER → 2024-06-10 | Outpatient (CLI) | payer BC, SELFPAY ==
--- NOTE | 2024-06-10 07:18 | BI_ITS ---
MAMMOGRAPHY - BILATERAL SCREENING REASON FOR EXAM: Female, 49 years old. Routine annual screening examination. PERTINENT HISTORY: Aunts with breast cancer. TECHNIQUE: Digital bilateral breast syeda (3D mammographic acquisition) in the CC and MLO projections. 2-D mediolateral oblique (MLO) and craniocaudad (CC) views of both breasts were obtained. CAD: Full Field Digital Mammography with Computer Added Detection was performed. COMPARISON: Comparison is made with prior study dated June 07, 2023 and June 06, 2022. FINDINGS: Breast Composition: The breasts are extremely dense, which lowers the sensitivity of mammography. There are no dominant masses or suspicious calcifications. Stable small benign-appearing bilateral axillary lymph nodes. No other significant abnormalities are identified. There has been no significant change since the prior study. BI/SCRN MAMM (CAD)W/SYEDA BILAT IMPRESSION: Stable bilateral screening mammogram. Yearly follow-up mammogram recommended. (A) ASSESSMENT CATEGORY: BIRADS Category 2: Benign. A letter regarding these results will be sent to the patient by the facility within 30 days. Approximately 10% of breast cancers are not detected by mammography. A normal mammogram should not delay biopsy of a clinically suspicious abnormality. [id number] Electronically Signed: Chester Underwood MD at 8:19 EST ,
== END | disposition home or self-care (01) ==
LOC: OPBI 07:16
PROVIDERS: PCP Internal Medicine; Referring Provider Internal Medicine; Visit Provider Internal Medicine
DX: Z12.31 Encounter for screening mammogram for malignant neoplasm of breast (principal)
CPT/HCPCS: 77063; 77067

== ENCOUNTER 2024-11-26 05:23 | Day surgery (SDC) | payer BC, SELFPAY ==
[2024-11-26] VITALS (8 sets, daily range): BP systolic 102–120; BP diastolic 60–74; PULSE 54–72; RESP 14–18; TEMP 36.2–36.7; O2SAT 94–98; BMI 31.1
--- NOTE | 2024-11-26 06:18 | PCM.PRE.AN2 ---
ASA Classification* ASA Classification ASA Classification: 2 Assessment & Plan Anesthesia* Anesthesia Assessment Anesthesia Assessment: Discussed sedation and/or anesthesia options, risks, benefits, and alternatives with patient/parents/legal guardian/POA. Questions invited. The patient/parents/legal guardian/POA seems to understand and agrees to proceed with anesthesia plan. Reviewed the physical assessment, medical history, allergy history and patient home medications list prior to surgery/procedure/anesthetic and documented any changes. Performed airway and anesthesia risk assessments. Anesthesia Type Anesthesia Type: MAC History Source History Obtained from:: Patient and Chart Anesthesia Focused Assessment* Temperature: 98.0 F Pulse Rate: 57 Blood Pressure: 120/69 Respiratory Rate: 18 Pulse Ox: 97 Airway Assessment Mouth opens: >3 cm Mallampati Score: III Teeth Condition: Caps/Crowns (Patient has couple crowns. They are tight.) Neck Range of motion (ROM): Full ROM Focused Labs Anesthesia Preop lab: CBC WBC 5.6 K/mm3 (4.4-11.0) 05/06/24 07:35 05/06/24 RBC 4.79 M/mm3 (4.2-5.4) 05/06/24 07:35 05/06/24 Hgb 12.6 g/dL (12.0-15.0) 05/06/24 07:35 05/06/24 Hct 41.2 % (37-47) 05/06/24 07:35 05/06/24 Plt Count 240 K/mm3 (150-450) 05/06/24 07:35 05/06/24 CHEMISTRY Potassium 3.8 mmol/L (3.5-5.1) 05/06/24 07:35 05/06/24 Sodium 139 mmol/L (136-145) 05/06/24 07:35 05/06/24 Magnesium 1.9 mg/dL (1.8-2.4) 10/18/16 02:44 10/18/16 Phosphorus 2.9 mg/dL (2.5-4.9) 05/06/24 07:35 05/06/24 BUN 20 mg/dL (7-18) H 05/06/24 07:35 05/06/24 Creatinine 0.99 mg/dL (0.55-1.02) 05/06/24 07:35 05/06/24 Glucose 102 mg/dL (74-106) 05/06/24 07:35 05/06/24 TSH 0.72 uIU/mL (0.358-3.74) 10/18/16 02:44 10/18/16 COAG PT 13.1 SECONDS (11.7-14.9) 10/17/16 16:15 10/17/16 HCG, Quant < 1 mIU/mL (<9 non-preg) 06/10/13 14:00 06/10/13 Pre-Assessment Diagnosis/Proposed Procedure Planned Operative Procedure(s): EGD Anesthesia History Anesthesia History - reed dipper: Anesthesia History - reed dipper Hx Hospitalization No 11/22/24 15:15 Any Problems With Anesthesia No 11/22/24 15:15 Cholinesterase deficiency No 11/22/24 15:15 You/Your Family Experience No 11/22/24 15:15 fever (hyperthermia) with Relationship Recent Exposure to Contagious No 11/26/24 05:57 Disease Does patient have nerve No 11/22/24 15:15 stimulator Patient instructed to have device shut off --Does patient have Pacemaker No 11/26/24 05:57 or ICD? When Was Last Pacemaker Check QUESTION #4 FULL TEXT: You/Your Family Experience fever (hyperthermia) with Anesthesia Last Oral Intake Last Oral intake: Last Oral Intake NPO since 22:30 11/26/24 05:57 Meds taken in AM with sips of No 11/26/24 05:57 water? Meds patient instructed to take am of surgery PONV PONV - reed dipper: PONV - reed dipper Female Yes 11/22/24 15:15 HX of Motion Sickness No 11/22/24 15:15 HX of N/V After Surgery No 11/22/24 15:15 Non-Smoker Yes 11/22/24 15:15 Duration of Surgery greater No 11/22/24 15:15 than 60 minutes Number of Risk Factors 2 11/22/24 15:15 PONV Score Moderate Risk 11/22/24 15:15 Height & Weight Height & Weight: Anesthesia: Height & Weight Height 5 ft 9 in 11/26/24 05:57 Weight: 95.6 kg 11/26/24 05:57 Body Mass Index (BMI) 31.1 11/26/24 05:57 Respiratory Assessment Respiratory Assessment - reed dipper: Respiratory Tract Infection Hx - reed dipper Hx Respiratory Tract Infection No 11/22/24 15:15 STOP Sleep Apnea STOP Sleep Apnea - reed dipper: STOP Sleep Apnea - reed dipper Hx Hypertension No 11/22/24 15:15 Hx Sleep Apnea No 11/22/24 15:15 CPAP No 11/22/24 15:15 BIPAP No 11/22/24 15:15 Do you snore loudly (louder No 11/22/24 15:15 than talking or can be heard Do you often feel tired/ No 11/22/24 15:15 fatigued/ sleepy during daytime? Has anyone observed you stop No 11/22/24 15:15 breathing during sleep? STOP Results Negative 11/22/24 15:15 QUESTION #5 FULL TEXT : Do you snore loudly (louder than talking or can be heard through closed doors)? 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 Specify any problems Hx of Preganancy in last 3 No 11/22/24 15:15 Months Nurse Filling Out Transfusion DSCHRIBER 11/22/24 15:15 & Questions: Date: 11/22/24 11/22/24 15:15 Time: 15:16 11/22/24 15:15 Patient unable to answer at this time (ie. confused, unrespo /Reproduction History /Reproductive History - reed dipper: /Reproductive Hx- reed dipper Hx Now No 11/22/24 15:15 Gestational Age (in weeks): EDC: Hx Hx Para Hx Section SAB No 11/22/24 15:15 PFSH Medical History Wears glasses History of echocardiogram Abdominal pain Hyperlipidemia Bulging lumbar disc Bilateral headaches Coronary vasospasm Acute electrocardiogram changes Migraine Home Medications ?Medication ?Instructions ?Recorded ?Last Taken ?Type topiramate 100 mg tablet 100 mg PO DAILY 10/17/16 11/06/23 21:00 History acetaminophen 325 mg tablet 325 - 650 mg (1 - 2 x 325 mg) PO 10/18/16 Unknown Rx Q6H PRN PRN Pain #0 tabs zinc acetate 50 mg (zinc) capsule 50 mg PO DAILY 05/28/20 11/04/23 History (Galzin) galcanezumab-gnlm 120 mg/mL 120 mg subcut QMONTH 05/23/23 10/17/23 History subcutaneous pen injector (Emgality Pen) magnesium oxide 400 mg PO DAILY 05/24/23 11/06/23 21:00 History rimegepant 75 mg disintegrating 75 mg PO ONCE PRN migraine headache 05/24/23 10/31/23 History tablet (Nurtec ODT) pantoprazole 40 mg tablet,delayed 40 mg PO QDAY #90 tabs 09/24/24 Unknown Rx release tizanidine 4 mg tablet 4 mg PO QHS 11/22/24 Unknown History Allergy/AdvReac Type Severity Reaction Status Date / Time metoprolol AdvReac Severe Severe Verified 11/26/24 05:56 chest pain NSAIDS (Non-Steroidal AdvReac Severe Marked Verified 11/26/24 05:56 Anti-Inflamma depressed renal function Family History Grandfather Colon cancer Other Cancer Heart disease Surgical History Hx of colonoscopy History of laparoscopic cholecystectomy History of left heart catheterization (10/18/16) Social History household members: spouse current occupational status: employed 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
--- NOTE | 2024-11-26 06:30 | EGD_PTH ---
PATIENT: MINDI DURAN LOC: EN U#:[id number] AGE/SX: 49/F ROOM: RE11/26/[address]: Dr. Marcel Mcgregor DO : 1975 BED: DIS: 11/26/2024 SPEC #: [id number] RECD: 11/26/24 11:16 STATUS: MARY REBenja #: [id number] MARICRUZ: 11/26/24 06:[address]: Marcel Mcgregor DEPT: SURGICAL PATHOLOGY RECD BY: Evaristo De La Rosa ENTERED: 11/26/24 11:16 SP TYPE: EGD BIOPSY CARLOS DR: Dr. Shellie Dailey MD Tissues: A - Esophagus, NOS Procedures: Surgery Specimen Level IV HEADER OPERATION: EGD biopsy PRE-OP DIAGNOSIS: Esophageal spasm TISSUE SUBMITTED: A- Distal esophagus biopsy MICROSCOPIC DIAGNOSIS A. Distal esophagus, biopsy: * Squamous mucosa with reactive changes. * Columnar mucosa negative for goblet cell metaplasia. MICROSCOPIC DESCRIPTION Slides are reviewed. GROSS DESCRIPTION A. Received in formalin in a container labeled with the patient's name, date of , and distal esophagus biopsy are 2 knapp-pink fragments of mucosal tissue measuring 0.5 x 0.2 x 0.2 cm and 0.3 x 0.2 x 0.2 cm. Submitted in toto in A1. SMB 11/26/2024 CPT:69178
--- NOTE | 2024-11-26 06:57 | PCM.HP.STD ---
HPI - General General Date of Admission: 11/26/24 Date of Service: 11/26/24 Chief Complaint: esophageal spasm HPI Narrative MINDI DURAN, is a 49 F who presents for the evaluation of esophageal spasm For the past 8 months pt has been having what she describes as esophageal spasming. Pt has been seen by ENT who recommended treatment with PPI and referral to GI for EGD with dilation. It can happen multiple times per day or none at all. These spasms cause her discomfort and her eyes water. Drinking water helps some. She feels stress may bring it on. She has not noticed issues with swallowing besides with dry foods on occasions. SHe was scheduled for a barium esophagagram and she was cancelled on twice. Pt denies abd pain, n/v, constipation, heartburn or diarrhea. FOR[facility]LY [facility], [facility] Medical History Wears glasses History of echocardiogram Abdominal pain Hyperlipidemia Bulging lumbar disc Bilateral headaches Coronary vasospasm Acute electrocardiogram changes Migraine Home Medications ?Medication ?Instructions ?Recorded ?Last Taken ?Type topiramate 100 mg tablet 100 mg PO DAILY 10/17/16 11/06/23 21:00 History acetaminophen 325 mg tablet 325 - 650 mg (1 - 2 x 325 mg) PO 10/18/16 Unknown Rx Q6H PRN PRN Pain #0 tabs zinc acetate 50 mg (zinc) capsule 50 mg PO DAILY 05/28/20 11/04/23 History (Galzin) galcanezumab-gnlm 120 mg/mL 120 mg subcut QMONTH 05/23/23 10/17/23 History subcutaneous pen injector (Emgality Pen) magnesium oxide 400 mg PO DAILY 05/24/23 11/06/23 21:00 History rimegepant 75 mg disintegrating 75 mg PO ONCE PRN migraine headache 05/24/23 10/31/23 History tablet (Nurtec ODT) pantoprazole 40 mg tablet,delayed 40 mg PO QDAY #90 tabs 09/24/24 Unknown Rx release tizanidine 4 mg tablet 4 mg PO QHS 11/22/24 Unknown History Allergy/AdvReac Type Severity Reaction Status Date / Time metoprolol AdvReac Severe Severe Verified 11/26/24 05:56 chest pain NSAIDS (Non-Steroidal AdvReac Severe Marked Verified 11/26/24 05:56 Anti-Inflamma depressed renal function Family History Grandfather Colon cancer Other Cancer Heart disease Surgical History Hx of colonoscopy History of laparoscopic cholecystectomy History of left heart catheterization (10/18/16) Social History household members: spouse current occupational status: employed 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[employer] Smoking 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: 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 smoker quit date: 08/07/06 pack-years: 15 alcohol intake: never substance use type: does not use what type of physical activity do you participate in: none seatbelt use: always do you feel safe at home: Yes additional social history: -Kuldeep- manager part ROS Constitutional Constitutional: Denies fatigue, fever(s), poor appetite, weight gain or weight loss Gastrointestinal Gastrointestinal: Denies belching, bloating, change in bowel habits, change in stool character, chewing difficulty, coffee ground emesis, constipation, cramping, diarrhea, dyspepsia, dysphagia, early satiety, excessive flatus, fecal incontinence, heartburn, hematemesis, hematochezia, hemorrhoids, loose stools, melena, nausea, odynophagia, rectal bleeding, tenesmus, vomiting or weight changes Vital Signs Vital Signs Vital Signs: 11/26/24 05:57 11/26/24 05:57 11/26/24 06:25 Temperature 98.0 F 98.0 F Temperature Source Temporal Pulse Rate 57 L 57 L Respiratory Rate 18 18 Respiratory Pattern Normal Blood Pressure 120/69 120/69 Blood Pressure Mean 86 Blood Pressure Source Monitor Blood Pressure Position Sitting Blood Pressure Location Left Arm Pulse Ox 97 97 Oxygen Delivery Method Room Air Weight Weight: 210 lb 12.191 oz Body Mass Index (BMI) 31.1 Physical Exam Const alert, oriented x3, no apparent distress and healthy appearing General Appearance: cooperative GI normal to inspection, nondistended, normoactive bowel sounds, soft to palpation, non-tender and non-distended Percussion: normal to percussion Rectal Exam: deferred Assessment & Plan Assessment/Plan (1) Esophageal spasm: PLAN: Assessment and Plan Assessment and Plan (1) Esophageal spasm: Status: Acute Plan: Pt is a 49 yo female pt here today for evaluation of esophageal spasms. This has been going on for about 8 months now and has no prior hx of esophageal problems. ENT did a tracheoscopy and noted that her esophagus seemed narrow. She had a barium esophagram scheduled but it was canceled twice. She will undergo EGD with dilation. In the mean time she will start pantoprazole 40 mg daily. -EGD with dilation -Start pantoprazole 40 mg daily Medications: New pantoprazole 40 mg PO QDAY 90 tabs 1RF
--- NOTE | 2024-11-26 07:14 | OP.EGD_ITS ---
Patient Name: Marli Fontanez Procedure Date: 11/26/2024 6:11 AM Date of : 1975 Age: 49 Procedure: Upper GI endoscopy Indications: Functional Dyspepsia, Dysphagia Providers: Marcel Mcgregor DO Referring MD: Shellie Dailey Medicines: Monitored Anesthesia Care Patient Profile: This is a 49 year old female. Refer to note in patient chart for documentation of history and physical. Patient has symptoms of chronic epigastric abdominal pain, dysphagia with both liquids and solids and chronic dyspepsia. Complications: No immediate complications. Procedure: Pre-Anesthesia Assessment: - Prior to the procedure, a History and Physical was performed, and patient medications and allergies were reviewed. The patient is competent. The risks and benefits of the procedure and the sedation options and risks were discussed with the patient. All questions were answered and informed consent was obtained. Patient identification and proposed procedure were verified by the physician in the pre-procedure area. Mental Status Examination: alert and oriented. Airway Examination: normal oropharyngeal airway and neck mobility. Respiratory Examination: clear to auscultation. CV Examination: normal. Prophylactic Antibiotics: The patient does not require prophylactic antibiotics. Prior Anticoagulants: The patient has taken no anticoagulant or antiplatelet agents. ASA Grade Assessment: II - A patient with mild systemic disease. After reviewing the risks and benefits, the patient was deemed in satisfactory condition to undergo the procedure. The anesthesia plan was to use monitored anesthesia care (MAC). Immediately prior to administration of medications, the patient was re-assessed for adequacy to receive sedatives. The heart rate, respiratory rate, oxygen saturations, blood pressure, adequacy of pulmonary ventilation, and response to care were monitored throughout the procedure. The physical status of the patient was re-assessed after the procedure. After obtaining informed consent, the endoscope was passed under direct vision. Throughout the procedure, the patient's blood pressure, pulse, and oxygen saturations were monitored continuously. The gastroscope was introduced through the mouth, and advanced to the second part of duodenum. The upper GI endoscopy was accomplished without difficulty. The patient tolerated the procedure well. Scope In: 7:07:30 AM Scope Out: 7:09:51 AM Total Procedure Duration Time 0 hours 2 minutes 21 seconds Findings: The examined esophagus was normal. The Z-line was irregular and was found 40 cm from the incisors. Biopsies were taken with a cold forceps for histology. Verification of patient identification for the specimen was done. Estimated blood loss was minimal. Suspect gastroparesis due to absence of peristalsis, patient symptoms and retained gastric contents. No gross lesions were noted in the duodenal bulb. Impression: - Normal esophagus. - Z-line irregular, 40 cm from the incisors. Biopsied. - Gastroparesis, idiopathic etiology. - No gross lesions in the duodenal bulb. Recommendation: - Discharge patient to home. - Resume previous diet. - Continue present medications. - Await pathology results. Procedure Code(s): --- Professional --- 76158, Esophagogastroduodenoscopy, flexible, transoral; with biopsy, single or multiple CPT copyright 2021 [employer]. All rights reserved. The codes documented in this report are preliminary and upon professional fee coder review may be revised to meet current compliance requirements. Marcel Mcgregor DO 11/26/2024 7:14:35 AM This report has been signed electronically. Number of Addenda: 0 Note Initiated On: 11/26/2024 6:11 AM
--- NOTE | 2024-11-26 07:15 | OP.CCLET_ITS ---
11/26/2024 Shellie Dailey [address] [place] [address] Re : Upper GI endoscopy procedure for Marli Fontanez Dear Dr. Dailey This procedure was performed on Tuesday, November 26, 2024. My impressions and recommendations are as follows: Impressions : - Normal esophagus. - Z-line irregular, 40 cm from the incisors. Biopsied. - Gastroparesis, idiopathic etiology. - No gross lesions in the duodenal bulb. Recommendations : - Discharge patient to home. - Resume previous diet. - Continue present medications. - Await pathology results. My findings are described in the full procedure note, which is enclosed. If I can be of further assistance, please feel free to contact me at . Sincerely, Marcel Mcgregor, 11/26/2024 7:14:35 AM This report has been signed electronically.
--- NOTE | 2024-11-26 07:19 | PCM.POST.ANE ---
Anesthesia: Postop Eval I Current Vital Signs Temperature: 97.2 F Pulse Rate: 72 Blood Pressure: 102/70 Respiratory Rate: 16 Pulse Ox: 95 Oxygen Delivery Method: Room Air Assessment Airway patent: Yes Spontaneous unlabored respirations: Yes Mental status: Asleep nausea: No Vomiting: No Anesthesia Complication: No Fluid Hydration Crystalloid volume administer (ml): 30 Total IV fluid infused: 30 Progress Note Anesthesia document: Postop Eval 1 completed: Yes
== END 2024-11-26 07:49 | disposition home or self-care (01) ==
LOC: EN 05:25 → AC 05:33
PROVIDERS: PCP Internal Medicine; Referring Provider Internal Medicine; Visit Provider Internal Medicine Gastroenterology
PROC: 0DJ08ZZ Inspection of Upper Intestinal Tract, Via Natural or Artificial Opening Endoscopic (ICD-10-PCS; CPT 43235; principal; 2024-11-26 06:25)
DX: K22.4 Dyskinesia of esophagus (principal); Z87.891 Personal history of nicotine dependence; K31.84 Gastroparesis; E78.5 Hyperlipidemia, unspecified
CPT/HCPCS: 43239; 88305; A4216; J2405

== ENCOUNTER → 2025-01-09 | Outpatient (CLI) | payer BC, SELFPAY ==
--- NOTE | 2025-01-09 12:49 | NM_ITS ---
PROCEDURE: GASTRIC EMPTYING STUDY 01/09/2025 REASON FOR EXAM: RETAINED FOOD IN STOMACH DURING EGD COMPARISON: None. TECHNIQUE: The patient ingested a a semi-solid meal of oatmeal. There was no vomiting postprandially. Anterior and posterior planar images of the upper abdomen were obtained for a total of 1 hour. Regions of interest were drawn, and a geometric mean was used to calculate a [id number]. Medications taken in the past 24 hours that may affect gastric emptying: None RADIOPHARMACEUTICAL: Technetium 99 M sulfur colloid DOSE 1.2mCi orally within the oatmeal. FINDINGS: Linear fit gastric emptying half time of 46.25 minutes. Gastric emptying half- time by raw data of 39.0 minutes. Gastric emptying at 11.5 minutes of 18%, at 29.5 minutes of 35%, at 47.5 minutes of 54%, and at 59.5 minutes of 59%. During the time of imaging, gastroesophageal reflux was not identified. NM/Gastric Emptying Study IMPRESSION: Normal semi solid phase gastric emptying. Reading Location: [id number]
== END | disposition home or self-care (01) ==
LOC: NM 12:44
PROVIDERS: PCP Internal Medicine; Referring Provider Student in an Organized Health Care Education/Training Program; Visit Provider Student in an Organized Health Care Education/Training Program
DX: K31.84 Gastroparesis (principal)
CPT/HCPCS: 78264; A9541

== ENCOUNTER → 2025-07-09 | Outpatient (CLI) | payer BC, SELFPAY ==
--- NOTE | 2025-07-09 07:30 | BI_ITS ---
EXAM: SCRN MAMM (CAD)W/SYEDA BILAT DATE: 07/09/2025 CLINICAL HISTORY: F, Age 50 y/o , SCREENING Aunts with breast cancer. TECHNIQUE: Procedure Code: [id number] Modality: MG Procedure: SCRN MAMM (CAD)W/SYEDA BILAT COMPARISON: Prior exam(s) dated June 10, 2024.. FINDINGS: TISSUE DENSITY: The breasts are extremely dense, which lowers the sensitivity of mammography. Bilateral Breast Mammographic Findings: No significant masses, calcifications or other abnormalities are identified. No suspicious masses, areas of developing architectural distortion, or suspicious calcifications. There has been no significant interval change. BI/SCRN MAMM (CAD)W/SYEDA BILAT IMPRESSION: Stable bilateral screening mammogram. OVERALL FINAL ASSESSMENT BI-RADS 1: NEGATIVE. RECOMMENDATION: Routine annual follow-up in 1 Year Additional Recommendation none A letter with findings and recommendations will be mailed to the patient. Reading Location: [place] [address]
--- OUTSIDE RECORDS SUMMARY | 2025-07-09 07:31 | XMS RPT_ITS | CCD ---
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 Comment on above: Normal coronaries, n ormal EF of 65%. Source of chest painand ekg changes found to be coronary vasospasm. Residual codes; unclassified (1 source) Insomnia, unspecified; Translations: [Insomnia, unspecified type] Onset: 07-26-2024 Episodic Superficial injury; contusion (3 sources) Contusion; Translations: [Other injury of unspecified body region] Onset: 07-25-2014 08-04-2014 Episodic Results Test Name Value Interpretation Reference Range Facility CNOVon 06-04-2025 CNOV Office Visit (INTMWS ) MINDI FONTANEZ ([id number]) 1975 F Date Time Provider Department 06/04/25 8:20 AM RIZWAN MAE INTMWS During your visit today, we recorded the following information about you: Pulse Respiration Blood pressure Weight 60/minute 16/minute 110/82 93.4 kg Height Last Period 1.753 m 03/07/25 Rizwan Mae MD 06/04/2025 9:02 AM Signed We discussed your recent physical and lab results: - Your recent lab results were mostly normal. Your glucose was 115, creatinine was 0.9, BUN was 14, and hemoglobin was normal. Your total cholesterol was mildly elevated at 205, and your HDL was 62. The MCHC was a little low, but overall your blood tests were normal. We discussed your migraines and headache management: - Continue using Emgality and Nurtec as you have been for migraine prevention and breakthrough headaches. - Continue taking Topamax for migraines. - I am providing a prescription for massage therapy to help with your migraines and tension. - You have a neurology appointment coming up on Monday for further evaluation. We discussed your sleep: - You are not currently taking doxepin or any other sleep medications, and you are managing your sleep without them. You may use Benadryl occasionally when traveling, and magnesium as needed. We discussed your reflux: - You had a recent upper EGD and a swallow study, both of which were normal. You are not having significant ongoing symptoms and are managing occasional symptoms with feap-oxi-xbovfbh medication as needed. We discussed your right-sided hip and leg pain, possibly related to bursitis or piriformis syndrome: - I am ordering x-rays of both hips to further evaluate your pain. - I recommend physical therapy for your hip pain. - I am providing a prescription for massage therapy, which may also help with your symptoms. Follow-up: - Please follow up with your neurologist as scheduled for your migraines. - Complete the x-rays of your hips as ordered. - Begin physical therapy for your hip pain as discussed. Rizwan Mae MD 06/04/2025 1:04 PM Signed Reason for Visit Annual physical HPI Mindi Fontanez is a 49-year-old female, with a history of migraines and GERD, presenting for a physical exam. Mindi reports intermittent, tolerable headaches with occasional breakthrough episodes. She is currently using Emgality and Nurtec for migraine management and has a follow-up appointment with her neurologist on Monday. She is also taking Topamax for migraines and weight loss, though she notes it has not been effective for weight loss. She reports sleep disturbances, waking up around 6893-1132 after going to bed between 0105-4147. She is not currently taking doxepin or any other sleep aids, but does use magnesium and occasionally Benadryl when traveling. She denies taking calcium carbonate or multivitamins. She reports feeling more or less rested upon waking and denies chest pain or angina. Mindi has a history of GERD, for which she underwent an EGD and a swallow study. Both studies were unremarkable, and she attributes her symptoms to stress. She occasionally takes djdx-sck-agtjkxi medication for reflux but denies any current issues. She reports severe right-sided sciatic pain, described as a pressure sensation in the buttocks radiating down the leg, exacerbated by prolonged sitting and driving. The pain is absent when standing or walking and rarely occurs when lying down. She has been experiencing this pain for 4-5 months and has been consulting a physical therapist for exercises. She requests a refill for massage therapy, which she finds helpful for tension relief. 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 She reports a stable weight and describes her stress as enjoyable. SOCIAL HISTORY[1] Past medical history, appointments, medications, allergies reviewed. 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 Normal [facility] CBC, Employeeon 06-02-2025 Absolute Lymph 1.91 X10 3/uL Normal 0.83-4.51 [facility] Comment on above: Performed By: #### L 500.2900, L400.0100, L100.0200 #### [facility] [address] [place], [address] Absolute Neut 2.5 X10 3/uL Normal 2.0-7.7 [facility] Comment on above: Performed By: #### L 500.2900, L400.0100, L100.0200 #### [facility] [address] [facility] [place], [address] Basophils/100 WBC (Bld) 1.0 % Normal 0-1 [facility] Comment on above: Performed By: #### L 500.2900, L400.0100, L100.0200 #### [facility] [address] [place], [address] Eosinophils/100 WBC (Bld) 2.9 % Normal 0-5 [facility] Comment on above: Performed By: #### L 500.2900, L400.0100, L100.0200 #### [facility] [address] [place], [address] Erythrocyte distribution width (RBC) [Ratio] 12.8 % Normal 11.6-14.6 [facility] Comment on above: Performed By: #### L 500.2900, L400.0100, L100.0200 #### [facility] [address] [place], [address] Hematocrit (Bld) [Volume fraction] 40.6 % Normal 37-47 [facility] Comment on above: Performed By: #### L 500.2900, L400.0100, L100.0200 #### [facility] [address] [place], [address] Hemoglobin (Bld) [Mass/Vol] 12.9 g/dL Normal 12.0-15.0 [facility] Comment on above: Performed By: #### L 500.2900, L400.0100, L100.0200 #### [facility] [address] [place], [address] Lymphocytes/100 WBC (Bld) 36.5 % Normal 19-41 [facility] Comment on above: Performed By: #### L 500.2900, L400.0100, L100.0200 #### [facility] [address] [place], [address] MCH (RBC) [Entitic mass] 27.4 pg Normal 27.0-32.0 [facility] Comment on above: Performed By: #### L 500.2900, L400.0100, L100.0200 #### [facility] [address] [place], [address] MCHC (RBC) [Mass/Vol] 31.8 g/dL Low 32-36 [facility] Comment on above: Performed By: #### L 500.2900, L400.0100, L100.0200 #### [facility] [address] [place], [address] MCV (RBC) [Entitic vol] 86.2 fL Normal 81-99 [facility] Comment on above: Performed By: #### L 500.2900, L400.0100, L100.0200 #### [facility] [address] [place], [address] Monocytes/100 WBC (Bld) 11.3 % High 0-10 [facility] Comment on above: Performed By: #### L 500.2900, L400.0100, L100.0200 #### [facility] [address] [place], [address] Neutrophils/100 WBC (Bld) 48.1 % Normal 47-70 [facility] Comment on above: Performed By: #### L 500.2900, L400.0100, L100.0200 #### [facility] [address] [place], [address] NRBC # 0.00 10 3/uL Normal 0-5 [facility] Comment on above: Performed By: #### L 500.2900, L400.0100, L100.0200 #### [facility] [address] [place], [address] Nucleated RBC (Bld) [#/Vol] 0 10*3/uL Normal 0-5 [facility] Comment on above: Performed By: #### L 500.2900, L400.0100, L100.0200 #### [facility] [address] [place], [address] Platelet mean volume (Bld) [Entitic vol] 9.0 fL Normal 6.2-12.0 [facility] Comment on above: Performed By: #### L 500.2900, L400.0100, L100.0200 #### [facility] [address] [place], [address] Platelets (Bld) [#/Vol] 252 10*3/uL Normal 150-450 [facility] Comment on above: Performed By: #### L 500.2900, L400.0100, L100.0200 #### [facility] [address] [place], [address] RBC (Bld) [#/Vol] 4.71 10*6/uL Normal 4.2-5.4 [facility] Comment on above: Performed By: #### L 500.2900, L400.0100, L100.0200 #### [facility] [address] [place], [address] RDW SD 39.9 fl Normal 35.1-43.9 [facility] Comment on above: Performed By: #### L 500.2900, L400.0100, L100.0200 #### [facility] [address] [place], [address] WBC (Bld) [#/Vol] 5.2 10*3/uL Normal 4.4-11.0 [facility] Comment on above: Performed By: #### L 500.2900, L400.0100, L100.0200 #### [facility] [address] [place], [address] Employee Profileon 5 LDH 151 U/L Normal 84-246 [facility] Comment on above: Performed By: #### L 500.2900, L400.0100, L100.0200 #### [facility] [address] [place], [address] Phosphate [Mass/Vol] 3.0 mg/dL Normal 2.7-4.5 [facility] Comment on above: Performed By: #### L 500.2900, L400.0100, L100.0200 #### [facility] [address] [place], [address] URIC 5.3 mg/dL Normal 2.6-6.0 [facility] Comment on above: Result Comment: The drugs N-Acetylcysteine and Metamizole may falsely depress this assay. Performed By: #### L 500.2900, L400.0100, L100.0200 #### [facility] [address] [place], [address] Urinalysis, Employeeon 06-02 BILIRUBIN URINE Negative Normal Negative [facility] Comment on above: Order Comment: Urine , Random Performed By: #### L 500.2900, L400.0100, L100.0200 #### [facility] [address] [place], [address] Clarity (U) Clear Normal Clear [facility] Comment on above: Order Comment: Urine , Random Performed By: #### L 500.2900, L400.0100, L100.0200 #### [facility] [address] [place], [address] Color (U) Straw Normal Yellow [facility] Comment on above: Order Comment: Urine , Random Performed By: #### L 500.2900, L400.0100, L100.0200 #### [facility] [address] [place], [address] GLUCOSE, UR Normal Normal Normal [facility] Comment on above: Order Comment: Urine , Random Performed By: #### L 500.2900, L400.0100, L100.0200 #### [facility] [address] [place], [address] KETONE UR Negative Normal Negative [facility] Comment on above: Order Comment: Urine , Random Performed By: #### L 500.2900, L400.0100, L100.0200 #### [facility] [address] [place], [address] LEUK ESTERASE Negative Normal Negative [facility] Comment on above: Order Comment: Urine , Random Performed By: #### L 500.2900, L400.0100, L100.0200 #### [facility] [address] [place], [address] Nitrite Ql (U) Negative Normal Negative [facility] Comment on above: Order Comment: Urine , Random Performed By: #### L 500.2900, L400.0100, L100.0200 #### [facility] [address] [place], [address] OCCULT BLOOD-UR Negative Normal Negative [facility] Comment on above: Order Comment: Urine , Random Performed By: #### L 500.2900, L400.0100, L100.0200 #### [facility] [address] [place], [address] pH UR 7.0 Normal 5.0 - 8.0 [facility] Comment on above: Order Comment: Urine , Random Performed By: #### L 500.2900, L400.0100, L100.0200 #### [facility] [address] [place], [address] PROT DIPSTX Negative Normal Negative [facility] Comment on above: Order Comment: Urine , Random Performed By: #### L 500.2900, L400.0100, L100.0200 #### [facility] [address] [place], [address] SP.GR. DIPSTX 1.010 Normal 1.002-1.030 [facility] Comment on above: Order Comment: Urine , Random Performed By: #### L 500.2900, L400.0100, L100.0200 #### [facility] [address] [place], [address] UROBILI Normal Normal Normal [facility] Comment on above: Order Comment: Urine , Random Performed By: #### L 500.2900, L400.0100, L100.0200 #### [facility] [address] [place], [address] Gastric Emptying Studyon Gastric Emptying Study [facility] Imaging Services [address] [facility] [place] [address] Gastric Emptying Study MR#: [id number] Acct: [id number] Name: MINDI FONTANEZ Rep #: [id number] : 1975 F 49 From: Amy Khoury PCP: Dr. Rizwan Mae MD Status: REG CLI Study: Gastric Emptying Study Date of Exam: 01/09/25 Exam# [id number] Ordering Dr: Abeba Gutierrez PROCEDURE: GASTRIC EMPTYING STUDY 01/09/2025 REASON FOR EXAM: RETAINED FOOD IN STOMACH DURING EGD COMPARISON: None. TECHNIQUE: The patient ingested a a semi-solid meal of oatmeal. There was no vomiting postprandially. Anterior and posterior planar images of the upper abdomen were obtained for a total of 1 hour. Regions of interest were drawn, and a geometric mean was used to calculate a wkgq-awzgtwxy-lgxxt. Medications taken in the past 24 hours that may affect gastric emptying: None RADIOPHARMACEUTICAL: Technetium 99 M sulfur colloid DOSE 1.2mCi orally within the oatmeal. FINDINGS: Linear fit gastric emptying half time of 46.25 minutes. Gastric emptying half-time by raw data of 39.0 minutes. Gastric emptying at 11.5 minutes of 18%, at 29.5 minutes of 35%, at 47.5 minutes of 54%, and at 59.5 minutes of 59%. During the time of imaging, gastroesophageal reflux was not identified. NM/Gastric Emptying Study IMPRESSION: Normal semi solid phase gastric emptying. Reading Location: [address] CC: Dr. Rizwan Mae MD; CASSIDY [facility] Neurosurgery Research Director: Signed Normal [facility] EGD Reporton 11-26-2024 EGD Report [facility] Medical Records Department [address] [place] [address] EGD Report MR#: [id number] Acct: [id number] Name: MINDI FONTANEZ Rep #: [id number] : 1975 49 From: Marcel Mcgregor DO PCP: Dr. Rizwan Mae MD Status:[facility] Patient Name: Mindi Fontanez Procedure Date: 11/26/2024 6:11 AM Date of : 1975 Age: 49 Procedure: Upper GI endoscopy Indications: Functional Dyspepsia, Dysphagia Providers: Marcel Mcgregor DO Referring MD: Rizwan Mae Medicines: Monitored Anesthesia Care Patient Profile: This is a 49 year old female. Refer to note in patient chart for documentation of history and physical. Patient has symptoms of chronic epigastric abdominal pain, dysphagia with both liquids and solids and chronic dyspepsia. Complications: No immediate complications. Procedure: Pre-Anesthesia Assessment: - Prior to the procedure, a History and Physical was performed, and patient medications and allergies were reviewed. The patient is competent. The risks and benefits of the procedure and the sedation options and risks were discussed with the patient. All questions were answered and informed consent was obtained. Patient identification and proposed procedure were verified by the physician in the pre-procedure area. Mental Status Examination: alert and oriented. Airway Examination: normal oropharyngeal airway and neck mobility. Respiratory Examination: clear to auscultation. CV Examination: normal. Prophylactic Antibiotics: The patient does not require prophylactic antibiotics. Prior Anticoagulants: The patient has taken no anticoagulant or antiplatelet agents. ASA Grade Assessment: II - A patient with mild systemic disease. After reviewing the risks and benefits, the patient was deemed in satisfactory condition to undergo the procedure. The anesthesia plan was to use monitored anesthesia care (MAC). Immediately prior to administration of medications, the patient was re-assessed for adequacy to receive sedatives. The heart rate, respiratory rate, oxygen saturations, blood pressure, adequacy of pulmonary ventilation, and response to care were monitored throughout the procedure. The physical status of the patient was re-assessed after the procedure. After obtaining informed consent, the endoscope was passed under direct vision. Throughout the procedure, the patient's blood pressure, pulse, and oxygen saturations were monitored continuously. The gastroscope was introduced through the mouth, and advanced to the second part of duodenum. The upper GI endoscopy was accomplished without difficulty. The patient tolerated the procedure well. Scope In: 7:07:30 AM Scope Out: 7:09:51 AM Total Procedure Duration Time 0 hours 2 minutes 21 seconds Findings: The examined esophagus was normal. The Z-line was irregular and was found 40 cm from the incisors. Biopsies were taken with a cold forceps for histology. Verification of patient identification for the specimen was done. Estimated blood loss was minimal. Suspect gastroparesis due to absence of peristalsis, patient symptoms and retained gastric contents. No gross lesions were noted in the duodenal bulb. Impression: - Normal esophagus. - Z-line irregular, 40 cm from the incisors. Biopsied. - Gastroparesis, idiopathic etiology. - No gross lesions in the duodenal bulb. Recommendation: - Discharge patient to home. - Resume previous diet. - Continue present medications. - Await pathology results. Procedure Code(s): --- Professional --- 88282, Esophagogastroduodeno scopy, flexible, transoral; with biopsy, single or multiple CPT copyright 2021 [employer]. All rights reserved. The codes documented in this report are preliminary and upon biophysics teacher review may be revised to meet current compliance requirements. Marcel Mcgregor DO 11/26/2024 7:14:35 AM This report has been signed electronically. Number of Addenda: 0 Note Initiated On: 11/26/2024 6:11 AM 11/26/24 0714 Date Marcel Lugo Signature: Date (if indicated) CC: Dr. Rizwan Mae MD; Marcel Mcgregor DO Date Dictated: 11/26/24610 Date Transcribed: Neurosurgery Research Director: ELVA Signed Normal [facility] MR/POSTOP.ANEon 11-26-2024 MR/POSTOP.[facility] Medical Records Department [address] [place] [address] Anesthesia Postop Eval I 11/26/24718 MR#: [id number] Acct: [id number] Name: MINDI FONTANEZ Rep #: [id number] : 1975 49 From: Miguelito Pereira PCP: Dr. Rizwan Mae MD Status:REG SD Y Race: C Location: [place] [address] Anesthesia: Postop Eval I Current Vital Signs Temperature: 97.2 F Pulse Rate: 72 Blood Pressure: 102/70 Respiratory Rate: 16 Pulse Ox: 95 Oxygen Delivery Method: Room Air Assessment Airway patent: Yes Spontaneous unlabored respirations: Yes Mental status: Asleep nausea: No Vomiting: No Anesthesia Complication: No Fluid Hydration Crystalloid volume administer (ml): 30 Total IV fluid infused: 30 Progress Note Anesthesia document: Postop Eval 1 completed: Yes 11/26/24719 Date Miguelito Jamison Signature: Date CC: Signed [facility] Surgery Specimen Level Isma 11-26-2024 Surgery Specimen Level IV -------- Patient Age/Sex Location Account Attending Physician -------- MINDI FONTANEZ 49/F EN [id number] Marcel Mcgregor DO -------- Specimen: [id number] Received: 11/26/24 Status: MARY Wilmer Num: [id number] Spec Type: EGD BIOPSY Subm Dr: Marcel Mcgregor DO HEADER OPERATION: EGD biopsy PRE-OP DIAGNOSIS: Esophageal spasm TISSUE SUBMITTED: A- Distal esophagus biopsy -------- MICROSCOPIC DIAGNOSIS A. Distal esophagus, biopsy: * Squamous mucosa with reactive changes. * Columnar mucosa negative for goblet cell metaplasia. MICROSCOPIC DESCRIPTION Slides are reviewed. GROSS DESCRIPTION A. Received in formalin in a container labeled with the patient's name, date of , and distal esophagus biopsy are 2 knapp-pink fragments of mucosal tissue measuring 0.5 x 0.2 x 0.2 cm and 0.3 x 0.2 x 0.2 cm. Submitted in toto in A1. [facility] 12/04/2024 CPT:38787 -------- Patient Age/Sex Location Account Attending Physician -------- MINDI FONTANEZ 49/F EN [id number] Marcel Mcgregor DO -------- Signed (signature on file) Dr. Lynette Hector MD 12/04/24 1117 -------- Normal [facility] Comment on above: Performed By: #### P RONNA #### [facility] Laboratory [facility] [place], [address] Alfonso 10-22-2024 LESLIEN Telephone (INTMWS) MINDI FONTANEZ ([id number]) 1975 F Date Time Provider Department 10/22/24 RIZWAN MAE INTWS During your visit today, we recorded the following information about you: Brittany Chen RN 10/22/2024 3:58 PM Signed Patient calls and states that daughter is turning 18 and will need a PCP. Patient is asking if provider would be willing to see patient's daughter as PCP? Please review and advise, BECCA Branch Joy, APRN.SIDE STITCHING MACHINE OPERATOR 10/25/2024 12:41 PM Signed Agree to accept patient into Dr. Currie practice. Please assist with establishing care appointment after her 18th birthday. Thank you Betina Vera APRN.Brittany Alba 10/25/2024 3:35 PM Signed Left message for patient to return call. When she calls, please scheduled patient's child with an establishing care appointment Dr. Mae/Betina Vera after child's 18th birthday. Carlota Dalton RN 10/25/2024 4:40 PM Signed See daughters chart for scheduling. Carlota Dalton RN Allergies As of Date: 10/22/2024 Noted Allergy Reaction AMITRIPTYLINE 05/06/2024 14 - Other: See Comments Comments: Chest pain NSAIDS (NON-STEROIDAL ANTI-INFLAM* 9 15 - Contraindication-Medi rosanne Hewitt* Comments: Increased creatinine Date Reviewed: 07/26/2024 Reviewed by: Mitzi Shane LPN - Fully Assessed Reason for Visit: Patient Question [6523] Prescriptions as of 10/25/2024 - rimegepant (NURTEC ODT) 75 mg disintegrating tablet Take 1 tablet by mouth once daily as needed. - Doxepin 6 mg tab Take 1 tablet by mouth daily at bedtime. - oxymetazoline (NASAL SPRAY, OXYMETAZOLINE,) 0.05 % nasal spray Use 2 Sprays in the nose two times a day. - topiramate (TOPAMAX) 100 mg tablet Take 1 tablet by mouth daily at bedtime. - tiZANidine (ZANAFLEX) 4 mg tablet Take 1 tablet by mouth daily at bedtime. - promethazine (PHENERGAN) 25 mg tablet Take 1 tablet by mouth every 4 hours as needed. FOR NAUSEA - galcanezumab-gnlm 120 mg/mL subcutaneous pen injector (EMGALITY) Inject 1 mL subcutaneously once every month. Refrigerate. Do not shake. - pantoprazole DR (PROTONIX) 20 mg tablet Take 1 tablet by mouth once daily. - ondansetron orally disintegrating (ZOFRAN ODT) 8 mg disintegrating tablet Take 1 tablet by mouth every 8 hours as needed for nausea/vomiting. - calcium carbonate (CALTRATE) 600 mg calcium (1,500 mg) tab Take 1 tablet by mouth twice daily. - acetaminophen (TYLENOL) 500 mg tablet Take 500 mg by mouth every 8 hours as needed. - Magnesium Hydroxide 400 mg (170 mg) chew Take 1 tablet by mouth once daily. - multivitamins(DAILY MULTIVITAMIN TAB) Take one(1) tablet daily. Problem List As Of Date 10/22/2024 Noted Resolved Migraine Headache [G43.909] 07/29/2009 Hypovitaminosis D [E55.9] 07/29/2009 Osteopenia [M85.80] 07/29/2009 12/21/2016 Stasis edema [I87.309] 02/10/2011 Degenerative disc disease, lumbar [M51.369] 06/07/2013 Migraine with aura and without status migrainos*03/22/2015 Prinzmetal angina (HCC) [I20.1] 06/27/2017 Encounter Status:Closed by CARLOTA DALTON on 10/25/24 Normal [facility] Gastroenterology Visit Repor ton 09-24-2024 Gastroenterology Visit Report [facility] Gastroenterology [address] [place] [address] OFFICE VISIT Date of Service: 09/24/24 MR#: [id number] Acct: [id number] Name: MINDI FONTANEZ Rep #: [id number] : 1975 Provider: CASSIDY Mayo Age/Sex: 49/F Location[place] [facility] [place] Status: Signed Intake Vital Signs 11/07/23 07:38 Height 5 ft 9 in Intake Visit Reasons: Pre EGD Chief Complaint: esophageal spasams Electro Mechanical Assembler Required: No Allergies metoprolol Adverse Reaction (Severe, Verified 11/07/23 07:34) Severe chest pain NSAIDS (Non-Steroidal Anti-Inflamma Adverse Reaction (Severe, Verified 11/07/23 07:34) Marked depressed renal function Patient : No Have you fallen in the past year?: No Nurse's Note: OV 09.24.24 pt here to establish care with [facility]. Pt reports if she eating something dry it will get stuck. Reports her throat feels like it spasms and her eyes water at random times. Tried OTC Protonix 20mg but noticed no change in symptoms. Prior colonoscopy in 2023. No prior hx of EGD. [facility] Medical History (Updated 09/24/24 @ 15:15 by CASSIDY Mayo) Wears glasses History of echocardiogram Abdominal pain Hyperlipidemia Bulging lumbar disc Bilateral headaches Coronary vasospasm Acute electrocardiogram changes Migraine Surgical History History of laparoscopic cholecystectomy History of left heart catheterization (10/18/16) Family History (Updated 05/24/23 @ 08:51 by Ella Gil) Grandfather Colon cancer Other Cancer Heart disease Social History (Updated 09/24/24 @ 14:42 by Paula Saunders LPN) household members: spouse current occupational status: employed 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 [id number] 2016 Unknown [id number] Unknown [id number] Unknown [id number] Unknown [id number] Unknown [id number] Unknown [id number] Unknown [id number] Unknown [id number] Social History Date Type Detail Facility Start: 03-15-2022 End: 05-06-2024 Tobacco smoking status NHIS Ex-smoker [facility] Work Phone: Start: 02-23-2021 End: 05-06-2024 Alcohol intake Current drinker of alcohol (finding) [facility] Start: 06-06-2016 History SDOH Alcohol Comment infrequently [facility] Start: 1975 Sex Assigned At Not on file [facility] Start: 11-27-2021 End: 04-26-2022 Exposure to SARS-CoV-2 (event) Not sure [facility] Work Phone: Start: 11-22-2021 End: 07-20-2023 Tobacco smoking status [facility] Unknown if ever smoked [facility] Start: 1975 Sex Assigned At Female W [facility] Start: 08-07-1991 End: 08-07-2006 History of tobacco use Current smoker [facility] Start: 08-07-1991 End: 08-07-2006 History of tobacco use Cigarette Smoker [facility] Start: 03-15-2022 End: 03-09-2023 Cigarettes smoked current (pack per day) - Reported 1 [facility] Start: 03-15-2022 End: 05-06-2024 Tobacco use and exposure Smokeless tobacco non-user [facility] Start: 03-15-2022 Tobacco Comment quit 2004 [facility] Start: 01-03-2023 End: 03-09-2023 Tobacco use panel [facility] Adult Depression Screening Assessment 0 [facility] NEGATED: Highlighted row Not [facility] Goals Date Patient Goal Desired Activity /State Functional Status Date Assessment Result Facility 10-09-2014 Are you deaf, or do you have serious difficulty hearing No 10/09/2014 4:12 PM Jarod Sainz LPN No [facility] 10-09-2014 Are you blind, or do you have serious difficulty seeing, even when wearing glasses No 10/09/2014 4:12 PM Jarod Sainz LPN No [facility] 10-09-2014 Do you have serious difficulty walking or climbing stairs No 10/09/2014 4:12 PM Jarod Sainz LPN No [facility] 10-09-2014 Do you have difficul ty dressing or bathing No 10/09/2014 4:12 PM Jarod Sainz LPN No [facility] 10-09-2014 Because of a physica l, mental, or emotional condition, do you have difficulty doing errands alone such as visiting a physician's office or shopping No 10/09/2014 4:12 PM Jarod Sainz LPN No [facility] Mental Status Date Assessment Result Facility 11-26-2024 Cognitive function Voice/Name [facility] Work Phone: 11-07-2023 Cognitive function Voice/Name [facility] Work Phone: 10-09-2014 Because of a physica l, mental, or emotional condition, do you have serious difficulty concentrating, remembering, or making decisions No 10/09/2014 4:12 PM Jarod Sainz LPN No [facility] Clinical Notes 07-29-2009 to 06-13-2025 Telephone Encounter - Natanael Espino APRN.[facility] - 01/22/2025 10:30 AM EDTTelephone Encounter - Natanael Espino APRN.CNP - 01/22/2025 10:30 AM EDT Note Date & Type Note Facility 06-13-2025 Note HNO ID: [id number] Author: VANDANA TAPIA APRN.[facility] Service: ? Author Type: Nurse Practitioner Type: Progress Notes Filed: 06/13/2025 07:19 Note Text: [facility] - Follow up Virtual Visit Last OV:07/03/24 Accompanied by: Self This visit was conducted as a virtual visit, with patient's permission, via ZOOM. It required patient-provider interaction for the medical decision making as documented below. Patient stated name and Patient location [place], [place] I have communicated my name and active licensure. The patient's identity and physical location were verified at the time of this visit. Either the patient or their legal business banking representative has been informed of the risks and benefits of -- and alternatives to -- treatment through a remote evaluation and consents to proceed with the evaluation remotely. Primary Problem List: ACTIVE PROBLEM LIST Migraine Headache Hypovitaminosis D Stasis Edema Degenerative Disc Disease, Lumbar Migraine With Aura and Without Status Migrainosus, Not Intractable Prinzmetal Angina Chief Complaint: Headache Interval Headache Hx: Plan from last visit: IMPRESSION: Migraine without aura and without status migrainosus, not intractable Mindi Fontanez is a 49 year old year old female, with a history of Prinzmetal angina,stasis edema, degenerative disc disease, and migraines.. Her headaches were low frequency while on Emgality,but increased a little when her nuva ring was removed. PLAN: Continue Emgality as preventative Continue Nurtec as abortive Headache 1 Location: frontal and occipital Quality/Description: throbbing and pressure Associated Symptoms: - rarely Phonophobia: yes Nausea: yes - rarely Vomiting: no Other symptoms: osmophobia Worse with activity: yes Number of migraine headache days/month: 6 Migraine headache severity: 7/10 Number of headache free days/month: 20 Duration of headaches with treatment: 4 hours Triggers: stress, weather changes, menses, sleep- too little and dehydration Onset of headache to peak: abrupt Positional changes: no Most common time of day for headache to begin: upon awakening Aura: none Allodynia: yes - temples Days missed from work or school in the last month: 0 days Headache status since the last visit: same Lifestyle: Sleep: 8-9 hours Issues and questions to be addressed: Medications Current Outpatient Medications Medication Sig Pmofsth-Rtrbbotvswcmz-Dsphnrku (EXCEDRIN MIGRAINE) 250-250-65 mg per tablet Take 1-2 tablets by mouth every 4 hours as needed. galcanezumab-gnlm 120 mg/mL subcutaneous pen injector (EMGALITY) Inject 1 mL subcutaneously once every month. Refrigerate. Do not shake. tiZANidine (ZANAFLEX) 4 mg tablet Take 1 tablet by mouth daily at bedtime. topiramate (TOPAMAX) 100 mg tablet Take 1 tablet by mouth daily at bedtime. promethazine (PHENERGAN) 25 mg tablet Take 1 tablet by mouth every 4 hours as needed. FOR NAUSEA rimegepant (NURTEC ODT) 75 mg disintegrating tablet Take 1 tablet by mouth once daily as needed. acetaminophen (TYLENOL) 500 mg tablet Take 500 mg by mouth every 8 hours as needed. Magnesium Hydroxide 400 mg (170 mg) chew Take 1 tablet by mouth once daily. No current facility-administered medications for this visit. ALLERGIES Allergen Reactions Amitriptyline Other: See Comments Chest pain Nsaids (Non-Steroid* Contraindication-Medical Surgical Increased creatinine HEADACHE SCORES: 03/09/2023 07/03/2024 06/13/2025 Headache Questions ER visits since last office visit: 0 0 0 Hospital stays since last office visit 0 0 0 Limited ADLs in the last month: 1 1 0 Days missed from work or school in the last month: 1 0 0 Days headache pain free in the last month: 3 20 20 Days per month with ALL of the following symptoms - decreased productivity, light sensitivity and nausea: 7 2 3 Initial improvement of headache after botox injection at last visit: Not applicable, I did not have a botox injection at my last visit Not applicable, I did not have a botox injection at my last visit PRN medication usage in the last month: 7 10 4 Patient impression of improvement since last visit: Much improved Much improved No change 03/09/2023 07/03/2024 06/13/2025 HIT-6 HIT-6 66 (Severe impact) 53 (Moderate impact) 50 (Moderate impact) 07/03/2024 06/04/2025 06/13/2025 SAMY - 2/7 SCORES SAMY-2 Score 0 0 0 03/09/2023 07/03/2024 06/13/2025 Migraine Specific QOL - Higher scores indicate better HRQL Role Function-Restrictive Transformed Score (range: 0-100) 80 85.71 88.57 Role Function-Preventive Transformed Score (range: 0-100) 85 100 100 Emotional Function Transformed Score (range: 0-100) 53.33 93.33 100 06/13/2025 07/03/2024 03/09/2023 PHQ-9 Score 2 2 1 Data saved with a previous flowsheet row definition I have reviewed the Domenic Status Assessment responses and discussed these with the patient: yes Vandana Tapia, SPIN TABLE OPERATOR.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 [facility] 06-04-2025 Note HNO ID: [id number] Author: RIZWAN MAE MD Service: ? Author Type: Physician Type: Progress Notes Filed: 06/04/2025 13:04 Note Text: Reason for Visit Annual physical HPI Mindi Fontanez is a 49-year-old female, with a history of migraines and GERD, presenting for a physical exam. Mindi reports intermittent, tolerable headaches with occasional breakthrough episodes. She is currently using Emgality and Nurtec for migraine management and has a follow-up appointment with her neurologist on Monday. She is also taking Topamax for migraines and weight loss, though she notes it has not been effective for weight loss. She reports sleep disturbances, waking up around 8823-9532 after going to bed between 9551-4602. She is not currently taking doxepin or any other sleep aids, but does use magnesium and occasionally Benadryl when traveling. She denies taking calcium carbonate or multivitamins. She reports feeling more or less rested upon waking and denies chest pain or angina. Mindi has a history of GERD, for which she underwent an EGD and a swallow study. Both studies were unremarkable, and she attributes her symptoms to stress. She occasionally takes exsi-zjl-pjmxhpd medication for reflux but denies any current issues. She reports severe right-sided sciatic pain, described as a pressure sensation in the buttocks radiating down the leg, exacerbated by prolonged sitting and driving. The pain is absent when standing or walking and rarely occurs when lying down. She has been experiencing this pain for 4-5 months and has been consulting a physical therapist for exercises. She requests a refill for massage therapy, which she finds helpful for tension relief. 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 She reports a stable weight and describes her stress as enjoyable. SOCIAL HISTORY[1] Past medical history, appointments, medications, allergies reviewed. 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 GENERAL: NAD, alert and oriented. SKIN: Unremarkable, no rash or skin lesions. HEAD: Normocephalic. EYES: PERRLA, EOMI, conjunctiva clear. EARS: External ears normal, canals clear, TM's normal. NOSE/SINUSES: Nares normal. Septum midline. OROPHARYNX: Lips, mucosa, and tongue normal, good dentition. No oral lesions noted. NECK: Supple, no lymphadenopathy, normal thyroid, no carotid bruits. LUNGS: Clear to auscultation bilaterally, no wheezes/rhonchi/rales. HEART: Regular rate and rhythm, no murmurs. No ectopy. EXTREMITIES: Normal, no deformities, no skin discoloration, no edema. NEURO: Awake, alert and oriented x3, cranial nerves II-XII grossly intact, normal gait, no involuntary motions. Labs: - Glucose: 115 - Creatinine: 0.9 - BUN: 14 - Total cholesterol: 205 (mildly elevated) - HDL: 62 - Hemoglobin: Normal - MCHC: Low Tests AND Prior Procedures: - EGD: Normal - Esophagram: Normal Assessment and Plan 1. Annual physical exam (Z00.00) Recent labs reviewed: glucose 115 mg/dL, creatinine 0.9 mg/dL, BUN 14 mg/dL, total cholesterol 205 mg/dL, HDL 62 mg/dL, hemoglobin normal, MCHC slightly low. - Discussed lab results and overall health status. 2. Migraine with aura and without status migrainosus, not intractable (G43.109) Migraines are generally controlled with Emgality and Nurtec, with occasional breakthrough headaches. - Continue current migraine management regimen. - Provided prescription for massage therapy to assist with migraine-related tension. 3. Buttock pain (M79.18) 4. Pyriformis syndrome, right (G57.01) Pain localized to the right buttock, exacerbated by sitting and driving, with radiation down the leg. Differential includes piriformis syndrome and ischial bursitis. - Ordered X-ray of the hip to evaluate for underlying pathology. - Referred to physical the (more content not included)... [facility] 04-08-2025 Note Patient Outreach (IN TMWS) MINDI FONTANEZ ([id number]) 1975 F Date Time Provider Department 04/08/25 RIZWAN MAE During your visit today, we recorded the following information about you: Allergies As of Date: 04/08/2025 Noted Allergy Reaction AMITRIPTYLINE 05/06/2024 14 - Other: See Comments Comments: Chest pain NSAIDS (NON-STEROIDAL ANTI-INFLAM*10/15/2018 15 - Contraindication-Medical [employer]* Comments: Increased creatinine Date Reviewed: 07/26/2024 Reviewed by: Mitzi Shane LPN - Fully Assessed Visit Diagnosis:Encounter for screening mammogram for breast cancer [Z12.31] Order(s):NIKOLAY SCREENING W SYEDA [[id number]] Order #: [id number] FUTURE Prescriptions as of 05/09/2025 - topiramate (TOPAMAX) 100 mg tablet Take 1 tablet by mouth daily at bedtime. - rimegepant (NURTEC ODT) 75 mg disintegrating tablet Take 1 tablet by mouth once daily as needed. - Doxepin 6 mg tab Take 1 tablet by mouth daily at bedtime. - oxymetazoline (NASAL SPRAY, OXYMETAZOLINE,) 0.05 % nasal spray Use 2 Sprays in the nose two times a day. - tiZANidine (ZANAFLEX) 4 mg tablet Take 1 tablet by mouth daily at bedtime. - promethazine (PHENERGAN) 25 mg tablet Take 1 tablet by mouth every 4 hours as needed. FOR NAUSEA - galcanezumab-gnlm 120 mg/mL subcutaneous pen injector (EMGALITY) Inject 1 mL subcutaneously once every month. Refrigerate. Do not shake. - pantoprazole DR (PROTONIX) 20 mg tablet Take 1 tablet by mouth once daily. - ondansetron orally disintegrating (ZOFRAN ODT) 8 mg disintegrating tablet Take 1 tablet by mouth every 8 hours as needed for nausea/vomiting. - calcium carbonate (CALTRATE) 600 mg calcium (1,500 mg) tab Take 1 tablet by mouth twice daily. - acetaminophen (TYLENOL) 500 mg tablet Take 500 mg by mouth every 8 hours as needed. - Magnesium Hydroxide 400 mg (170 mg) chew Take 1 tablet by mouth once daily. - multivitamins(DAILY MULTIVITAMIN TAB) Take one(1) tablet daily. Problem List As Of Date 04/08/2025 Noted Resolved Migraine Headache [G43.909] 07/29/2009 Hypovitaminosis D [E55.9] 07/29/2009 Osteopenia [M85.80] 07/29/2009 12/21/2016 Stasis edema [I87.309] 02/10/2011 Degenerative disc disease, lumbar [M51.369] 06/07/2013 Migraine with aura and without status migrainos*03/22/2015 Prinzmetal angina (HCC) [I20.1] 06/27/2017 Encounter Status:Closed by PILO, PRODUSER on 05/09/25 [facility] 01-22-2025 Telephone encounter Note The following approved medication requests have been transmitted electronically. Requested Prescriptions Signed Prescriptions Disp Refills topiramate (TOPAMAX) 100 mg tablet 90 tablet 1 Sig: Take 1 tablet by mouth daily at bedtime. Authorizing Provider: NATANAEL ESPINO APRN.CNP [facility] 01-22-2025 Miscellaneous Notes The following approved medication requests have been transmitted electronically. Requested Prescriptions Signed Prescriptions Disp Refills topiramate (TOPAMAX) 100 mg tablet 90 tablet 1 Sig: Take 1 tablet by mouth daily at bedtime. Authorizing Provider: NATANAEL ESPINO APRN.CNP Physician: Kee Call from patient requesting refill. Please E-Scribe Last OV: 07/03/2024 with Kee Future OV: Not Scheduled. Patient Comment: Please fill for 90 tabs with refills. Currently filling with only 30 tabs and no refills. Thank you Requested Prescriptions Pending Prescriptions Disp Refills topiramate (TOPAMAX) 100 mg tablet 90 tablet 0 Sig: Take 1 tablet by mouth daily at bedtime. [facility] Name: [facility] documented in this encounter [facility] 01-22-2025 Telephone encounter Note Physician: Kee Call from patient requesting refill. Please E-Scribe Last OV: 07/03/2024 with Kee Future OV: Not Scheduled. Patient Comment: Please fill for 90 tabs with refills. Currently filling with only 30 tabs and no refills. Thank you Requested Prescriptions Pending Prescriptions Disp Refills topiramate (TOPAMAX) 100 mg tablet 90 tablet 0 Sig: Take 1 tablet by mouth daily at bedtime. Pharmacy Name: [facility] 01-09-2025 Nuclear medicine Diagnostic study note [facility] Imaging Services [address] [place] [address] Gastric Emptying Study MR#: [id number] Acct: [id number] Name: MINDI FONTANEZ Rep #: [id number] : 1975 F 49 From: Axel Kline MD PCP: Dr. Rizwan Mae MD Status: REG C LI Study:Gastric Emptying Study Date of Exam: 01/09/25 Exam# [id number] Ordering Dr: Abeba Gutierrez PROCEDURE: GASTRIC EMPTYING STUDY 01/09/2025 REASON FOR EXAM: RETAINED FOOD IN STOMACH DURING EGD COMPARISON: None. TECHNIQUE: The patient ingested a a semi-solid meal of oatmeal. There was no vomiting postprandially. Anterior and posterior planar images of the upper abdomen were obtained for a total of 1 hour. Regions of interest were drawn, and a geometric mean was used to calculate a [id number]. Medications taken in the past 24 hours that may affect gastric emptying: None RADIOPHARMACEUTICAL: Technetium 99 M sulfur colloid DOSE 1.2mCi orally within the oatmeal. FINDINGS: Linear fit gastric emptying half time of 46.25 minutes. Gastric emptying half-time by raw data of 39.0 minutes. Gastric emptying at 11.5 minutes of 18%, at 29.5 minutes of 35%, at 47.5 minutesof 54%, and at 59.5 minutes of 59%. During the time of imaging, gastroesophageal reflux was not identified. NM/Gastric Emptying Study IMPRESSION: Normal semi solid phase gastric emptying. Reading Location: [address] CC: Dr. Rizwan Mae MD; CASSIDY Mayo ~ Neurosurgery Research Director: Signed [facility] 11-26-2024 Note [facility] Medical Records Department [address] [place] [address] History Physical Exam 11/26/24 0657 MR#: [id number] Acct: [id number] Name: MINDI FONTANEZ Rep #: [id number] : 1975 49 From: Marcel Mcgregor DO PCP: Dr. Rizwan Mae MD Status:[facility] Location: [place] [address] HPI - General General Date of Admission: 11/26/24 Date of Service: 11/26/24 Chief Complaint: esophageal spasm HPI Narrative MINDI FONTANEZ, is a 49 F who presents for the evaluation of esophageal spasm For the past 8 months pt has been having what she describes as esophageal spasming. Pt has been seen by ENT who recommended treatment with PPI and referral to GI for EGD with dilation. It can happen multiple times per day or none at all. These spasms cause her discomfort and her eyes water. Drinking water helps some. She feels stress may bring it on. She has not noticed issues with swallowing besides with dry foods on occasions. SHe was scheduled for a barium esophagagram and she was cancelled on twice. Pt denies abd pain, n/v, constipation, heartburn or diarrhea. [facility] Medical History Wears glasses History of echocardiogram Abdominal pain Hyperlipidemia Bulging lumbar disc Bilateral headaches Coronary vasospasm Acute electrocardiogram changes Migraine Home Medications ???Medication ???Instructions ???Recorded ???Last Taken ???Type topiramate 100 mg tablet 100 mg PO DAILY 10/17/16 11/06/23 21:00 History acetaminophen 325 mg tablet 325 - 650 mg (1 - 2 x 325 mg) PO 0 10/18/16 Unknown Rx Q6H PRN PRN Pain #0 tabs zinc acetate 50 mg (zinc) capsule 50 mg PO DAILY 05/28/20 11/04/23 History (Galzin) galcanezumab-gnlm 120 mg/mL 120 mg subcut QMONTH 05/23/2310/05 History subcutaneous pen injector (Emgality Pen) magnesium oxide 400 mg PO DAILY 05/24/23 11/06/23 21:00 History rimegepant 75 mg disintegrating 75 mg PO ONCE PRN migraine headach e 05/24/23 10/31/23 History tablet (Nurtec ODT) pantoprazole 40 mg tablet,delayed 40 mg PO QDAY #90 tabs 09/24/24 U nknown Rx release tizanidine 4 mg tablet 4 mg PO QHS 11/22/24 Unknown Histo ry Allergy/AdvReac Type Severity Reaction Status Date / Time metoprolol AdvReac Severe Severe Verified 11/26/24 05:56 chest pain NSAIDS (Non-Steroidal AdvReac Severe Marked Verified 11/26/24 05:56 Anti-Inflamma depressed renal function Family History Grandfather Colon cancer Other Cancer Heart disease Surgical History Hx of colonoscopy History of laparoscopic cholecystectomy History of left heart catheterization (10/18/16) Social History household members: spouse current occupational status: employed 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[employer] Smoking Status: Former smoker quit date: 08/07/06 pack-years: 15 alcohol intake: never substance use type: does not use what type of physical activity do you participate in: none seatbelt use: always do you feel safe at home: Yes 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 ROS Constitutional Constitutional: Denies fatigue, fever(s), poor appetite, weight gain or weight loss Gastrointestinal Gastrointestinal: Denies belching, bloating, change in bowel habits, change in stool character, chewing difficulty, coffee ground emesis, constipation, cramping, diarrhea, dyspepsia, dysphagia, early satiety, excessive flatus, fecal incontinence, heartburn, hematemesis, hematochezia, hemorrhoids, loose stools, melena, nausea, odynophagia, rectal bleeding, tenesmus, vomiting or weight changes Vital Signs Vital Signs Vital Signs: 11/26/24 05:57 11/26/24 05:57 11/26/24 06:25 Temperature 98.0 F 98.0 F Temperature Source Temporal Pulse Rate 57 L 57 L Respiratory Rate 18 18 Respiratory Pattern Normal Blood Pressure 120/69 120/69 Blood Pressure Mean 86 Blood Pressure Source Monitor Blood Pressure Position Sitting Blood Pressure Location Left Arm Pulse Ox 97 97 Oxygen Delivery Method Room Air Weight Weight: 210 lb 12.191 oz Body Mass Index (BMI) 31.1 Physical Exam Const alert, oriented x3, no apparent distress and healthy appearing General Appearance: cooperative GI normal to inspection, nondistended, normoactive bowel sounds, soft to palpation, non-tender and non- distended Percussion: normal to percussion Rectal Exam: deferred Assessment Plan Assessment/Plan (1) Esophageal spasm: PLAN: Assessment and Plan Assessment and Plan (1) Esophageal spasm: Status: Acute Plan: Pt is a 49 yo female pt here today for evalua (more content not included)... [facility] 10-25-2024 Telephone encounter Note See daughters chart for scheduling. Carlota Dalton RN [facility] 10-25-2024 Miscellaneous Notes See daughters chart for scheduling. Carlota Datlon RN Left message for patient to return call. When she calls, please scheduled patient's child with an establishing care appointment Dr. Mae/Betina Vera after child's 18th birthday. Agree to accept patient into Dr. Currie practice. Please assist with establishing care appointment after her 18th birthday. Thank you Betina Vera APRN.CNP Patient calls and states that daughter is turning 18 and will need a PCP. Patient is asking if provider would be willing to see patient's daughter as PCP? Please review and advise, Brittany Chen RN documented in this encounter [facility] 10-25-2024 Telephone encounter Note Left message for patient to return call. When she calls, please scheduled patient's child with an establishing care appointment Dr. Mae/Betina Vera after child's 18th birthday. T [facility] 10-25-2024 Telephone encounter Note Agree to accept patient into Dr. Currie practice. Please assist with establishing care appointment after her 18th birthday. Thank you Betina Vera APRN.LESLIE [facility] Work Phone: 10-22-2024 Telephone encounter Note Patient calls and states that daughter is turning 18 and will need a PCP. Patient is asking if provider would be willing to see patient's daughter as PCP? Please review and advise, Brittany Chen RN T [facility] 09-24-2024 Evaluation note Diagnosis Onset Date Resolution Esophageal spasm acute September 24, 2024 2:23pm Esophageal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 Specialty Start Date End Date Rizwan Mae MD [address], [place] [id number] PCP - General Internal Medicine 11/23/16 Back Order Clerk Relationship Specialty Start Date End Date Rizwan Mae MD [address] [place] [address] PCP - General Internal Medicine 11/23/16 Back Order Clerk Relationship Specialty Start Date End Date Rizwan Mae MD [address] [place] [address] PCP - General Internal Medicine 11/23/16 Back Order Clerk Relationship Specialty Start Date End Date Rizwan Mae MD [address] [place] [address] PCP - General Internal Medicine 11/23/16 Back Order Clerk Relationship Specialty Start Date End Date Rizwan Mae MD [address] [place] [address] PCP - General Internal Medicine 11/23/16 Back Order Clerk Relationship Specialty Start Date End Date Rizwan Mae MD [address] [place] [address] PCP - General Internal Medicine 11/23/16 Back Order Clerk Relationship Specialty Start Date End Date Rizwan Mae MD [address] [place] [address] PCP - General Internal Medicine 11/23/16 Back Order Clerk Relationship Specialty Start Date End Date Rizwan Mae MD [address] [place] [address] PCP - General Internal Medicine 11/23/16 Back Order Clerk Relationship Specialty Start Date End Date Rizwan Mae MD [address] [place] [address] PCP - General Internal Medicine 11/23/16 Back Order Clerk Relationship Specialty Start Date End Date Rizwan Mae MD [address] [place] [address] PCP - General Internal Medicine 11/23/16 Back Order Clerk Relationship Specialty Start Date End Date Rizwan Mae MD [address] [place] [address] PCP - General Internal Medicine 11/23/16 Back Order Clerk Relationship Specialty Start Date End Date Rizwan Mae MD [address] [place] [address] PCP - General Internal Medicine 11/23/16 Back Order Clerk Relationship Specialty Start Date End Date Rizwan Mae MD [address] [place] [address] PCP - General Internal Medicine 11/23/16 Back Order Clerk Relationship Specialty Start Date End Date Rizwan Mae MD [address] [place] [address] PCP - General Internal Medicine 11/23/16 Team Status: Active Member Role Status Talib VERA ACTIVITIES AIDE-C Primary Care Provider Active Health Risk Assessment Attending Provider, Randall adan Active Back Order Clerk Relationship Specialty Start Date End Date Rizwan Mae MD [address] [place] [address] PCP - General Internal Medicine 11/23/16 Back Order Clerk Relationship Specialty Start Date End Date Rizwan Mae MD [address] [place] [address] PCP - General Internal Medicine 11/23/16 Back Order Clerk Relationship Specialty Start Date End Date Rizwan Mae MD [address] [place] [address] PCP - General Internal Medicine 11/23/16 Back Order Clerk Relationship Specialty Start Date End Date Rizwan Mae MD [address] [place] [address] PCP - General Internal Medicine 11/23/16 Back Order Clerk Relationship Specialty Start Date End Date Rizwan Mae MD [address] [place] [address] PCP - General Internal Medicine 11/23/16 Back Order Clerk Relationship Specialty Start Date End Date Rizwan Mae MD [address] [place] [address] PCP - General Internal Medicine 11/23/16 Back Order Clerk Relationship Specialty Start Date End Date Rizwan Mae MD [address] [place] [address] PCP - General Internal Medicine 11/23/16 Back Order Clerk Relationship Specialty Start Date End Date Rizwan Mae MD [address] [place] [address] PCP - General Internal Medicine 11/23/16 Back Order Clerk Relationship Specialty Start Date End Date Rizwan Mae MD [address] [place] [address] PCP - General Internal Medicine 11/23/16 Back Order Clerk Relationship Specialty Start Date End Date Rizwan Mae MD [address] [place] [address] PCP - General Internal Medicine 11/23/16 Back Order Clerk Relationship Specialty Start Date End Date Rizwan Mae MD [address] [place] [address] PCP - General Internal Medicine 11/23/16 Mari Nicole, TERRAC [address] [place] [address] Deli Clerk Family Medicine 07/14/24 Betina Vera APRN.SIDE STITCHING MACHINE OPERATOR [address] [place] [address] [facility] Internal Medicine 07/14/24 Leatha Vazquez PA-C [address] [place] [address] [facility] 07/14/24 Back Order Clerk Relationship Specialty Start Date End Date Rizwan Mae MD [address] [place] [address] PCP - General Internal Medicine 11/23/16 Mari Nicole PA-C [address] [place] [address] [facility] 07/14/24 Betina Vera APRN.SIDE STITCHING MACHINE OPERATOR [address] [place] [address] [facility] Internal Medicine 07/14/24 Leatha Vazquez PA-C [address] [place] [address] [facility] 07/14/24 Back Order Clerk Relationship Specialty Start Date End Date Rizwan Mae MD [address] [place] [address] PCP - General Internal Medicine 11/23/16 Mari Nicole PA-C [address] [place] [address] [facility] Medicine 07/14/24 Betina Vera APRN.SIDE STITCHING MACHINE OPERATOR [address] [place] [address] Deli Clerk Internal Medicine 07/14/24 Leatha Vazquez PA-C [address] [place] [address] Deli Clerk Family Medicine 07/14/24 Team Status: Active Member Role Status Dates Dr. Rizwan Mae MD Primary Care Provider Active Team Status: Inactive Member Role Status Dates Dr. Rizwan Mae MD Primary Care Provider Active Start: September 24, 2024 End: September 24, 2024 Dr. Rizwan Mae MD Referring Provider Active Start: September 24, 2024 End: September 24, 2024 CASSIDY Mayo Attending Provider Active Start: September 24, 2024 End: September 24, 2024 Team Status: Inactive Member Role Status Dates Dr. Rizwan Mae MD Primary Care Provider Active Start: November 26, 2024 End: November 26, 2024 Dr. Rizwan Mae MD Referring Provider Active Start: November 26, 2024 End: November 26, 2024 Dr. Marcel Mcgregor DO Attending Provider Active Start: November 26, 2024 End: November 26, 2024 Team Status: Active Member Role Status Dates Dr. Rizwan Mae MD Primary Care Provider Active Start: November 26, 2024 Dr. Rizwan Mae MD Referring Provider Active Start: November 26, 2024 Dr. Marcel Mcgregor DO Attending Provider Active Start: November 26, 2024 Dr. Marcel Mcgregor DO Other Provider Active St art: November 26, 2024 Team Status: Inactive Member Role Status Dates Dr. Rizwan Mae MD Primary Care Provider Active Start: January 09, 2025 End: January 09, 2025 CASSIDY Mayo Attending Provider Active Start: January 09, 2025 End: January 09, 2025 CASSIDY Mayo Referring Provider Active Start: January 09, 2025 End: January 09, 2025 Back Order Clerk Relationship Specialty Start Date End Date Rizwan Mae MD [address] [facility] [place] [address] PCP - General Internal Medicine 11/23/16 Betina Vera APRN.SIDE STITCHING MACHINE OPERATOR [address] [facility] [place] [address] Deli Clerk Internal Medicine 07/14/24 Back Order Clerk Relationship Specialty Start Date End Date Rizwan Mae MD [address] [place] [address] PCP - General Internal Medicine 11/23/16 Betina Vera APRN.SIDE STITCHING MACHINE OPERATOR [address] [place] [address] Deli Clerk Internal Medicine 07/14/24 INFORMATION SOURCE (unrecogn ized section and content) DATE CREATED AUTHOR 01/25/2022 [facility] DATE CREATED AUTHOR AUTHOR'S ORGANIZ ATION 06/14/2025 [facility] DATE CREATED AUTHOR AUTHOR'S ORGANIZ ATION 06/19/2025 [facility] FOR RECORDS PERTAINING TO PATIENTS WHO ARE OR HAVE BEEN ENROLLED IN A CHEMICAL DEPENDENCY/SUBSTANCEABUSE PROGRAM, SOME INFORMATION MAY BE OMITTED. This clinical summary was aggregated from multiple sources. Caution should be exercised in using it in the provision of clinical care. This summary normalizes information from multiple sources, and as a consequence, information in this document may materially change the coding, format and clinical context of patient data. In addition, data may be omitted in some cases. CLINICAL DECISIONS SHOULD BE BASED ON THE PRIMARY CLINICAL RECORDS. [employer] provides no warranty or guarantee of the accuracy or completeness of information in this document.
== END | disposition home or self-care (01) ==
LOC: OPBI 07:28
PROVIDERS: PCP Internal Medicine; Referring Provider Internal Medicine; Visit Provider Internal Medicine
DX: Z12.31 Encounter for screening mammogram for malignant neoplasm of breast (principal)
CPT/HCPCS: 77063; 77067